=== PATIENT | female | born 1955 | race Caucasian/White ===

== ENCOUNTER 2019-08-15 08:04 | Outpatient (CLI) | payer MEDICARE, SELFPAY ==
[2019-08-15 09:30] LABS: Alanine Aminotransferase 15 U/L (4-35); Albumin Level 4.1 g/dL (3.5-5.1); Alkaline Phosphatase 72 U/L (38-126); Aspartate Amino Transferase 26 U/L (14-36); Bilirubin,Total 0.2 mg/dL (0.2-1.3); Blood Urea Nitrogen 12 mg/dL (7-17); Calcium 9.3 mg/dL (8.4-10.2); Carbon Dioxide 29 mmol/L (22-30); Chloride 105 mmol/L (98-107); Estimated Glomerular Filt Rate 50; Glucose 85 mg/dL (65-105); Potassium 4.4 mmol/L (3.4-5.0); Sodium 137 mmol/L (137-145)
== END 2019-08-15 08:05 | disposition home or self-care (01) ==
PROVIDERS: PCP Internal Medicine; Visit Provider Nurse Practitioner
DX: R00.2 Palpitations (principal)
CPT/HCPCS: 36415; 80053; 84443

== ENCOUNTER 2019-08-16 13:19 | Outpatient (CLI) | payer MEDICARE, SELFPAY ==
--- NOTE | ~2019-08-16 | MR_ITS ---
EXAMINATION: MR shoulder LT wo con DATE: 08/16/2019 15:47 INDICATION: Left shoulder pain post injury one year prior with exacerbating injury one month prior. TECHNIQUE: Magnetic resonance imaging (MRI) of the left shoulder was performed without intravenous co ntrast. Sequences included axial PD-weighted FS FSE, coronal oblique PD-weighted FS FSE, coronal obli que T2-weighted FS FSE, sagittal PD-weighted FS FSE, and sagittal T1-weighted SE. COMPARISON: Left shoulder radiographs dated 06/10/2009 FINDINGS: Evaluation mildly limited by small amount of motion artifact or blurring on multiple sequences. Coracoacromial arch: The acromion undersurface is curved in morphology (type II). The coracoacromial ligament is normal. M ild acromioclavicular osteoarthritis. Rotator cuff: Moderate supraspinatus and infraspinatus tendinopathy with thickening and mild increased signal of th e tendons greatest at the conjoined portion of the tendons. No discrete tear. Mild subscapularis tend inopathy without discrete tear. The teres minor tendon is normal. Normal rotator cuff muscle bulk and signal. Biceps tendon, glenoid labrum and glenohumeral cartilage: There is thickening and increased signal at the junction of the intra and extra articular portions of the long head biceps tendon consistent with tendinopathy and likely focal longitudinal split tearing . Linear increased signal extending laterally into the substance of the superior labrum consistent wi th a superior, anterior to posterior tear of the glenoid labrum (SLAP tear) which extends from the 12 :30 position anteriorly to the 10:30 position posteriorly. There is likely paravertebral cyst extendi ng 12 mm medially from the 11:30 position and measuring approximately 6-7 mm in diameter at this exte nds towards but does not appear to significantly encroach upon the neurovascular structures at the sp inoglenoid notch. There is additional mild degeneration along the inferior glenoid labrum. Glenohumer al cartilage is normal. Fluid: Likely reactive small glenohumeral joint effusion with proportional extension of a small amount fluid along the long head biceps tendon sheath. There is however mild synovitis at the tendon sheath sugge sting mild bicipital tenosynovitis. No loose osteochondral bodies. Small amount of fluid in the subac romial/subdeltoid bursa consistent with mild bursitis. Bones: Normal marrow signal with no edema, fracture or pathologic marrow replacing process. Mild cystic nunn ges along the intertubercular groove. IMPRESSION: 1. SLAP tear at the superior to posterior superior glenoid labrum with small para labral cyst. Additi onal degeneration along the inferior glenoid labrum. 2. Mild subscapularis and moderate supraspinatus and infraspinatus tendinopathy without discrete tear . 3. Moderate tendinopathy and longitudinal split tearing centered at the junction of internal extra ar ticular portion of the long head biceps tendon with mild bicipital tenosynovitis. 4. Mild subacromial/subdeltoid bursitis. Reviewed, dictated and finalized at location A. IMPRESSION: 1. SLAP tear at the superior to posterior superior glenoid labrum with small pa ra labral cyst. Additional degeneration along the inferior glenoid labrum. 2. Mild subscapularis and moderate supraspinatus and infraspinatus tendinopathy without discrete tear. 3. Moderate tendinopathy and longitudinal split tearing centered at the junctio n of internal extra articular portion of the long head biceps tendon with mild bicipital tenosynovitis. 4. Mild subacromial/subdeltoid bursitis.
--- NOTE | ~2019-08-16 | US_ITS ---
EXAMINATION: US carotid duplex BI DATE: 08/16/2019 13:58 INDICATION: Right internal carotid atherosclerosis and stenosis. Palpitations. TECHNIQUE: Grayscale, color Doppler, and pulsed Doppler images of the cervical carotid arteries were obtained. The degree of vessel stenosis is placed in one of the following categories: normal, <50%, 5 0-69%, >=70% but less than near-occlusion, near-occlusion, or total occlusion. Note that percent sten osis relative to normal distal artery lumen diameter is indirectly measured from velocity measurement s as described by Aric, et al. Radiology 2003; 229:340-346. COMPARISON: 04/08/2015 FINDINGS: RIGHT: The right common carotid artery (CCA) peak systolic velocity (PSV) is 89 cm/s. The right internal car otid artery (ICA) PSV is 63 cm/s. The right ICA end-diastolic velocity (EDV) is 25 cm/s. The right IC A/CCA PSV ratio is 0.7. Grayscale and color Doppler images yield an estimate of <50% diameter reducti on from plaque in the ICA. The external carotid artery (ECA) PSV is 70 cm/s. There is antegrade flow in the right vertebral artery. LEFT: The left CCA PSV is 67 cm/s. The left ICA PSV is 53 cm/s. The left ICA EDV is 14 cm/s. The left ICA/C CA PSV ratio is 0.8. Grayscale and color Doppler images yield an estimate of <50% diameter reduction from plaque in the ICA. The ECA PSV is 79 cm/s. There is antegrade flow in the left vertebral artery. IMPRESSION: 1. <50% stenosis in the right internal carotid artery. 2. <50% stenosis in the left internal carotid artery. Reviewed, dictated and finalized at location A.
== END 2019-08-16 13:20 | disposition home or self-care (01) ==
PROVIDERS: PCP Internal Medicine; Visit Provider Nurse Practitioner
DX: R00.2 Palpitations (principal); M75.52 Bursitis of left shoulder; S43.432A Superior glenoid labrum lesion of left shoulder, initial encounter; X58.XXXA Exposure to other specified factors, initial encounter; I65.23 Occlusion and stenosis of bilateral carotid arteries
CPT/HCPCS: 73221; 93880

== ENCOUNTER 2019-08-17 10:12 | Outpatient (CLI) | payer MEDICARE, SELFPAY ==
--- NOTE | 2019-08-20 15:52 | WPDHOLTEREM ---
Holter/Event Monitor Holter/Event Monitor Date of procedure: 08/17/19 Procedure Type: 48 hour holter monitor Indications: Palpitations Conclusion: 1. 48 hour holter monitor on 08/17/19. 2. Underlying rhythm is sinus rhythm. HR range 56-133 bpm; average HR 76 bpm. 3. There are 19 premature supraventricular complexes, 2 supraventricular couplets. No supraventricular tachycardia. 4. There are 2 premature ventricular complexes. No ventricular tachycardia. 5. No sinoatrial or atrioventricular blocks. No significant pauses greater than 2 seconds. 6. Patient reports symptoms of shortness of breath, palpitations, thumping heart, fast heart beak, feeling shaky which demonstrate sinus rhythm, HR range 68-77 bpm.
== END 2019-08-17 10:13 | disposition home or self-care (01) ==
PROVIDERS: PCP Internal Medicine; Visit Provider Nurse Practitioner
DX: R00.2 Palpitations (principal)
CPT/HCPCS: 93225; 93226

== ENCOUNTER 2019-08-23 12:39 | Outpatient (CLI) | payer MEDICARE, SELFPAY ==
--- NOTE | ~2019-08-23 | XR_ITS ---
EXAMINATION: XR lg joint inject/asp w image DATE: 08/23/2019 13:43 INDICATION: Severe tendinopathy with left shoulder pain. TECHNIQUE: A time-out was performed to verify the patient's name, date of , and procedure to b e performed. The procedure including the risks, benefits, and alternatives was discussed with the pat ient. Risks discussed included bleeding and infection. The patient understood the risks and agreed to proceed. The skin overlying the rotator cuff interval of the left glenohumeral joint was prepped an d draped in usual sterile fashion. Anesthetic was administered with 1% lidocaine subcutaneously. A 22 G needle was advanced under fluoroscopic guidance into the joint. Injection of 0.4 mL of Omnipaqu e 240 confirmed intra-articular position of the needle. Subsequently, injectate consisting of 4 mL o f a 3:1 mixture of 1% lidocaine: 80 mg/mL Depo-Medrol for a total dose of 80 mg Depo-Medrol was insti lled. Washout of contrast was seen confirming intra-articular administration. The needle was removed and the entry site was cleaned and dressed. There were no immediate complications. Fluoroscopy expos ure time was 3.1 minutes. The total number of images was 2. FINDINGS: Real-time fluoroscopy demonstrates the needle in the left glenohumeral joint. Patient's [place] n prior to procedure:8/10. Patient's pain following the procedure: 5/10. IMPRESSION: 1. Left glenohumeral joint injection of local anesthetic and steroid with decrease in the patient's p resenting pain. Reviewed, dictated and finalized at location A. IMPRESSION: 1. Left glenohumeral joint injection of local anesthetic and steroid with decre ase in the patient's presenting pain.
== END 2019-08-23 12:40 | disposition home or self-care (01) ==
PROVIDERS: PCP Internal Medicine; Visit Provider Orthopaedic Surgery
DX: M25.512 Pain in left shoulder (principal)
CPT/HCPCS: 20610; 77002; J1040; Q9966

== ENCOUNTER 2019-12-03 13:59 | Outpatient (CLI) | payer MEDICARE, SELFPAY ==
--- NOTE | ~2019-12-03 | CT_ITS ---
EXAMINATION: CT chest w con DATE: 12/03/2019 14:29 INDICATION: Left breast cancer TECHNIQUE: Computed tomography (CT) of the chest was performed with 75 cc Omnipaque 350 intravenous c ontrast. The dose-length product was 123.55 mGy-cm. Automated exposure control and iterative reconstr uction technique were employed. COMPARISON: CT dated 04/07/2018 FINDINGS: There is a 2 mm right upper lobe nodule, image 18, stable. Mild emphysema. Calcified right lower lobe nodule, consistent with chronic granulomatous disease. 2 mm right upper lobe nodule, image 12, stable. There is lingular atelectasis/scarring. No new pulmonary nodules or masses. Moderate tho racic spondylosis. No evidence for aortic aneurysm or dissection. Heart size normal. No significant p leural or pericardial effusion. There are cholecystectomy clips. Fatty infiltration of the liver. The re is prominence of the bile duct, likely due to prior cholecystectomy. There are surgical changes in the left breast. Mild wedge shaped appearance to the lower thoracic spine, likely chronic. Focal vas cular lesion right hepatic lobe, image 94, measuring 8 mm. There is a vascular lesion in the left hep atic lobe, image 85, measuring 12 mm. IMPRESSION: 1. Vascular lesions of the liver involving both lobes. Differential diagnosis includes benign hemangi omas, transient hepatic attenuation difference, adenomas and metastatic disease. Consider correlation with MRI. 2: Mild emphysema. 3: Stable small pulmonary nodules, likely benign. Reviewed, dictated and finalized at location A. IMPRESSION: 1. Vascular lesions of the liver involving both lobes. Differential diagnosis i ncludes benign hemangiomas, transient hepatic attenuation difference, adenomas and metastatic disease. Consider correlation with MRI. 2: Mild emphysema. 3: Stable small pulmonary nodules, likely benign.
[2019-12-03 14:24] LABS: Estimated Glomerular Filt Rate 50
== END 2019-12-03 14:00 | disposition home or self-care (01) ==
PROVIDERS: PCP Internal Medicine; Visit Provider Internal Medicine Medical Oncology
DX: C50.212 Malignant neoplasm of upper-inner quadrant of left female breast (principal); Z17.0 Estrogen receptor positive status [ER+]; J43.9 Emphysema, unspecified; R91.8 Other nonspecific abnormal finding of lung field
CPT/HCPCS: 36415; 71260; Q9967

== ENCOUNTER 2020-12-27 13:43 | Emergency (ER) | payer MEDICARE, SELFPAY ==
[2020-12-27 14:04] VITALS: BP 115/79; PULSE 96; RESP 16; TEMP 36.6; O2SAT 100
--- NOTE | 2020-12-27 14:40 | ED.URI ---
HPI - URI/Sore Throat General Chief Complaint: Upper Respiratory Infection Stated Complaint: SINUS CONGESTION/SWOLLEN GLANDS Source: patient and RN notes reviewed Limitations: no limitations History of Present Illness HPI Narrative: The vaccinated patient, a smoker/occasional drinker with COPD, presents with sinus congestion. Patient states she has a least a week long history of frontal sinus headache, scratchy throat, anterior lymphadenopathy and ear fullness. Symptoms are mild unrelieved with [id number] Zyrtec. No S OB, loss of taste/smell, CP, sputum changes, wheezing, vomiting/diarrhea Related Data Home Medications Medication Instructions Recorded Confirmed cholecalciferol (vitamin D3) 50 2,000 unit PO DAILY 03/26/19 04/10/20 mcg (2,000 unit) capsule fluticasone propionate 50 See Rx Instructions NASAL DAILY PRN 03/26/19 04/10/20 mcg/actuation nasal spray,suspension olopatadine 0.2 % eye drops 1 drop EACH EYE BID ml 03/26/19 04/10/20 sennosides 8.6 mg-docusate sodium 1 tablet PO DAILY PRN tablet 03/26/19 04/10/20 50 mg tablet Allergies Allergy/AdvReac Type Severity Reaction Status Date / Time povidone-iodine AdvReac Severe Swelling Verified 04/10/20 10:20 [From Betadine] soap [From Betadine] AdvReac Severe Swelling Verified 04/10/20 10:20 Review of Systems Review of Systems: General/Constitutional: No weight loss,fever Eyes: N0: Redness,discharge Ears/Nose/Throat: No: Epistaxis,ear discharge Respiratory: Denies: Hemoptysis Gastrointestinal: No Vomiting, Bleeding-rectal Skin: No Lumps, eruption Neurologic: No Focal Weakness,Sz Hematologic: Denies: Petechiae/Purpura Psychiatric: No: Suicida ideationl All Other Systems: Reviewed and Negative [facility] Past Medical History Medical History Chronic headache Dysphagia Left upper arm pain Family History Family History Mother Hypertension Carcinoma of colon Father Patient's father is Social History Social History Smoking status: Current every day smoker Smoking end date: 05/30/87 Alcohol intake: current Comments At time of signature, agree with nursing past medical, surgical, social and family history. There is no relevant family history pertinent to the presenting complaint Exam Narrative: General Appearance: Well appearing, Well nourished EYE: PERRLA, Conjunctiva clear Ears: Auditory canal normal, TM normal Nose: Rhinorrhea, Mucousal erythema Mouth/Throat: MM moist, Uvula midline, Pharyngeal erythema Neck: Supple, No adenopathy Respiratory: No respiratory distress, BS equal decreased at bases, increased AP diameter, CTA, Cardiovascular: RRR, No JVD Musculoskeletal: Non tender, Normal strength Skin: Warm, Dry Neurological: A&O x3, CN II-XII intact Psychiatric: Normal mood, Normal affect Course Vital Signs Vital signs: Vital Signs Temperature 98 F 12/27/20 14:04 Pulse Rate 96 12/27/20 14:04 Respiratory Rate 16 12/27/20 14:04 Blood Pressure 115/79 12/27/20 14:04 Pulse Oximetry 100 12/27/20 14:04 Temperature 98 F 12/27/20 14:04 Pulse Rate 96 12/27/20 14:04 Respiratory Rate 16 12/27/20 14:04 Blood Pressure 115/79 12/27/20 14:04 Pulse Oximetry 100 12/27/20 14:04 Discharge Plan Discharge Clinical Impression: Sinus headache, Lymphadenopathy Patient Disposition: Home, Self-Care Condition: Stable Instructions: Antibiotic Form, Sinusitis (ED) Additional Instructions: You may take your home pain meds; You may take OTC preparations also like Mucinex, Flonase, etc. Prescriptions: New azelastine 137 mcg (0.1 %) aerosol,spray 137 mcg NASAL Q12H Qty: 30 RF: 0 cefuroxime axetil 500 mg tablet 500 mg PO Q12H Qty: 14 RF: 0 No Action metronidazole 0.7
[2020-12-29 13:58] LABS: SARS-CoV-2 RNA PCR Negative
== END 2020-12-27 14:50 | disposition home or self-care (01) ==
PROVIDERS: Emergency Provider Emergency Medicine; PCP Internal Medicine
DX: R51.9 Headache, unspecified (principal); R59.1 Generalized enlarged lymph nodes; Z20.822 Contact with and (suspected) exposure to COVID-19; Z87.891 Personal history of nicotine dependence; I10 Essential (primary) hypertension
CPT/HCPCS: 99213; C9803; G0463; U0003; U0005

== ENCOUNTER 2021-01-01 09:24 | Outpatient (CLI) | payer MEDICARE, SELFPAY ==
[2021-01-01 10:01] LABS: Alanine Aminotransferase 11 U/L (4-35); Albumin Level 3.8 g/dL (3.5-5.1); Alkaline Phosphatase 82 U/L (38-126); Anion Gap 3 mmol/L (8-16); Aspartate Amino Transferase 26 U/L (14-36); Bilirubin,Total 0.3 mg/dL (0.2-1.3); Blood Urea Nitrogen 15 mg/dL (7-17); Calcium 9.4 mg/dL (8.4-10.2); Carbon Dioxide 28 mmol/L (22-30); Chloride 107 mmol/L (98-107); Cholesterol 182 mg/dL (0-200); Estimated Glomerular Filt Rate 56; Glucose 87 mg/dL (65-110); HDL Direct 89 mg/dL; Potassium 4.8 mmol/L (3.4-5.0); Sodium 138 mmol/L (137-145); Triglycerides 61 mg/dL (<150)
[2021-01-01 10:11] LABS: LDL Cholesterol Direct 72 mg/dL
[2021-01-01 10:35] LABS: Vitamin D 25 Hydroxy 54.1 ng/mL
== END 2021-01-01 09:25 | disposition home or self-care (01) ==
LOC: ANHLAB 09:26
PROVIDERS: PCP Internal Medicine; Visit Provider Internal Medicine
DX: E78.5 Hyperlipidemia, unspecified (principal); I25.10 Atherosclerotic heart disease of native coronary artery without angina pectoris; E55.9 Vitamin D deficiency, unspecified; I10 Essential (primary) hypertension
CPT/HCPCS: 36415; 80053; 80061; 82306

== ENCOUNTER → 2021-03-10 03:00 | Outpatient (CLI) | payer MEDICARE, SELFPAY ==
[2021-03-10 16:22] LABS: SARS-CoV-2 RNA PCR Negative
== END ==
PROVIDERS: PCP Internal Medicine; Visit Provider Internal Medicine
DX: R68.89 Other general symptoms and signs (principal); Z20.822 Contact with and (suspected) exposure to COVID-19
CPT/HCPCS: C9803; U0003; U0005

== ENCOUNTER → 2021-05-07 01:38 | Outpatient (CLI) | payer MEDICARE, SELFPAY ==
[2021-05-07 13:50] LABS: Influenza Control Positive
[2021-05-07 19:33] LABS: SARS-CoV-2 RNA PCR Negative
== END ==
PROVIDERS: PCP Internal Medicine; Visit Provider Internal Medicine
DX: R68.89 Other general symptoms and signs (principal); Z20.822 Contact with and (suspected) exposure to COVID-19
CPT/HCPCS: 87804; C9803; U0003; U0005

== ENCOUNTER 2021-06-26 11:48 | Emergency (ER) | payer MEDICARE, SELFPAY ==
[2021-06-26 11:57] VITALS: BP 144/78; PULSE 93; RESP 16; TEMP 36.5; O2SAT 98
--- NOTE | 2021-06-26 11:58 | ED.EXTPRO ---
HPI - Extremity Problem General Chief complaint: Extremity Problem,Nontraumatic Stated complaint: Left pinky toe pain Source: patient Mode of arrival: ambulatory Limitations: no limitations History of Present Illness HPI Narrative: 66-year-old female presented for complaint of left toe pain for about 5 days after injury. She endorses striking the corner of a desk between the fourth and fifth toes, after which she pulled a large piece of skin from the interdigital space. Endorses since then she noticed redness and swelling to the toe and surrounding skin. Denies significant pain, numbness, tingling. She is able to ambulate with a steady gait. Has been applying Neosporin to the site. Related Data Home Medications Medication Instructions Recorded Confirmed cholecalciferol (vitamin D3) 50 2,000 unit PO DAILY 03/26/19 06/26/21 mcg (2,000 unit) capsule sennosides 8.6 mg-docusate sodium 1 tablet PO DAILY PRN tablet 03/26/19 06/26/21 50 mg tablet Allergies Allergy/AdvReac Type Severity Reaction Status Date / Time povidone-iodine AdvReac Severe Swelling Verified 06/26/21 11:52 [From Betadine] soap [From Betadine] AdvReac Severe Swelling Verified 06/26/21 11:52 Review of Systems Review of Systems: CONSTITUTIONAL: Denies body aches, fever, chills, or sweats. EYES: Denies visual changes, redness, or discharge. ENT: Denies rhinorrhea, congestion, sore throat, or otalgia. CARDIOVASCULAR: Denies chest pain, palpitations, or edema. RESPIRATORY: Denies cough or dyspnea. GASTROINTESTINAL: Endorses abdominal pain, nausea, vomiting, diarrhea. Denies hematochezia, melena, hematemesis GENITOURINARY: Denies dysuria or hematuria. SKIN: Endorses left 5th toe redness, swelling and open area between 4th and 5th toes Denies rash, itching MUSCULOSKELETAL: Denies back pain, joint pain, or myalgia. NEUROLOGIC: Denies headache, numbness, tingling, or weakness. PSYCH: Denies depression or anxiety. All systems reviewed & are unremarkable except as noted in HPI and below PMFSH Past Medical History Medical History (Updated 06/26/21 @ 12:10 by Smiley Conway APRN) Allergies Anxiety (09/26/18) Chronic headache Chronic left shoulder pain Coronary arteriosclerosis in [place] artery Discoloration of skin Dysphagia Hyperlipidemia Left hip pain Left knee pain Left upper arm pain Multiple lesions of face Pure hypercholesterolemia Scalp lesion Trochanteric bursitis, left hip Family History Family History Mother Hypertension Carcinoma of colon Father Patient's father is Social History Social History Smoking packs per day: 0.5 Smoking cigarettes per day: 10.0 Years smoked: 30 Smoking pack-years: 15.00 Smoking status: Current every day smoker Tobacco type: cigarettes Second hand tobacco smoke exposure: Yes Alcohol intake: current Alcohol use details: social Substance use: never Substance use type: does not use Comments At time of signature, I have reviewed and agree with nursing past medical, surgical, social and family history unless otherwise noted. Please see nursing chart for further information. There is no relevant family history pertinent to the presenting complaint Exam Narrative: GENERAL: Well-appearing, well-nourished, and in no acute distress. HEAD: Normocephalic, atraumatic. EYES: EOMI. No redness or drainage. Conjunctivae normal. ENT: Mucous membranes pink and moist. NECK: Normal AROM. CHEST: No respiratory distress. Clear to auscultation. HEART: Regular rate and rhythm. No murmur appreciated. Normal peripheral pulses. ABDOMEN: abd soft, nondistended, normal active bowel sounds. MUSCULOSKELETAL: No bony tenderness. EXTREMITIES: Normal range of motion. No edema. SKIN: Left foot 5th digit mild erythema and swelling approx 1 inch from MTP joint, o
== END 2021-06-26 12:18 | disposition home or self-care (01) ==
PROVIDERS: Emergency Provider Nurse Practitioner Family; PCP Internal Medicine
DX: L08.9 Local infection of the skin and subcutaneous tissue, unspecified (principal); S91.302A Unspecified open wound, left foot, initial encounter; W22.8XXA Striking against or struck by other objects, initial encounter; I25.10 Atherosclerotic heart disease of native coronary artery without angina pectoris; E78.5 Hyperlipidemia, unspecified; E78.00 Pure hypercholesterolemia, unspecified; F17.200 Nicotine dependence, unspecified, uncomplicated; F41.9 Anxiety disorder, unspecified
CPT/HCPCS: 99213; G0463

== ENCOUNTER 2021-07-14 08:08 | Outpatient (CLI) | payer MEDICARE, SELFPAY ==
[2021-07-14 09:27] LABS: Cholesterol 199 mg/dL (0-200); HDL Direct 79 mg/dL; Triglycerides 77 mg/dL (<150)
[2021-07-14 09:28] LABS: Alanine Aminotransferase 14 U/L (4-35); Albumin Level 4.4 g/dL (3.5-5.1); Alkaline Phosphatase 86 U/L (38-126); Anion Gap 4 mmol/L (8-16); Aspartate Amino Transferase 27 U/L (14-36); Bilirubin,Total 0.3 mg/dL (0.2-1.3); Blood Urea Nitrogen 13 mg/dL (7-17); Calcium 9.3 mg/dL (8.4-10.2); Carbon Dioxide 31 mmol/L (22-30); Chloride 106 mmol/L (98-107); Estimated Glomerular Filt Rate 55; Glucose 96 mg/dL (65-110); Potassium 5.1 mmol/L (3.4-5.0); Sodium 141 mmol/L (137-145)
[2021-07-14 09:38] LABS: LDL Cholesterol Direct 94 mg/dL
[2021-07-14 09:56] LABS: Vitamin D 25 Hydroxy 38.8 ng/mL
[2021-07-14 09:58] LABS: Thyroid Stimulating Hormone 0.809 uIU/mL (0.465-4.680)
== END 2021-07-14 08:09 | disposition home or self-care (01) ==
PROVIDERS: PCP Internal Medicine; Referring Provider Internal Medicine; Visit Provider Nurse Practitioner
DX: E55.9 Vitamin D deficiency, unspecified (principal); N18.30 Chronic kidney disease, stage 3 unspecified; F32.9 Major depressive disorder, single episode, unspecified; E78.5 Hyperlipidemia, unspecified; Z13.220 Encounter for screening for lipoid disorders
CPT/HCPCS: 36415; 80053; 80061; 82306; 84443

== ENCOUNTER 2021-08-22 09:04 | Outpatient (CLI) | payer MEDICARE, SELFPAY ==
--- NOTE | ~2021-08-22 | CT_ITS ---
EXAMINATION: CT lung screening EXAM DATE: 08/22/2021 09:47 INDICATION: Z72.0 - Tobacco use. TECHNIQUE: Spiral low dose CT of the chest without contrast. Axial, coronal and sagittal images were reviewed. The dose-length product (DLP) for this examination was 60.57 mGy-cm. The exposure was ta ilored according to patient size (auto mA exposure control), and iterative reconstruction (ASIR) was used as additional dose reduction technique. Comparison is made to prior examination from 12/03/2019. FINDINGS: There is right lower lobe calcified granuloma. There is mild to moderate emphysema and hyp erinflation. Tracheobronchial tree is patent. There is no mediastinal, hilar or axillary lymphadeno kolby. There are no pleural or pericardial effusions. There is no pneumothorax. Heart normal in size. There is mild coronary arterial calcification, arterial sclerosis. There are cholecystectom y clips. Upper abdomen is unremarkable. There is thoracic spondylosis without osteoblastic or ost eolytic lesions identified. IMPRESSION: Lung-RADS category 1, negative (<1%chance of malignancy); recommend continued LDCT screen ing in 1 year. Reviewed, dictated and finalized at location B. IMPRESSION: Lung-RADS category 1, negative (<1%chance of malignancy); recommend continued LDCT screening in 1 year.
== END 2021-08-22 09:05 | disposition home or self-care (01) ==
LOC: ANHIMG 09:05
PROVIDERS: PCP Internal Medicine; Visit Provider Internal Medicine
DX: Z12.2 Encounter for screening for malignant neoplasm of respiratory organs (principal); F17.210 Nicotine dependence, cigarettes, uncomplicated
CPT/HCPCS: 71271

== ENCOUNTER 2021-08-26 06:57 | Outpatient (CLI) | payer MEDICARE, SELFPAY ==
--- NOTE | ~2021-08-26 | CT_ITS ---
EXAMINATION: CT sinus wo con DATE: 08/26/2021 07:16 INDICATION: Chronic sinusitis. Dysphagia. TECHNIQUE: Computed tomography (CT) of the paranasal sinuses was performed without contrast. Iterativ e reconstruction technique was employed. Exam dose: 277.13 mGy-cm total exam DLP. COMPARISON: None FINDINGS: There is rightward bowing of nasal septum. The nasal turbinates are unremarkable. The paranasal sinuses, ostiomeatal units and mastoid air cells are normally developed and aerated. IMPRESSION: Rightward bowing of nasal septum Patent paranasal sinuses, ostiomeatal units and mastoid air cells Reviewed, dictated and finalized at Location A. Reviewed, dictated and finalized at location A.
--- NOTE | ~2021-08-26 | XR_ITS ---
EXAMINATION: XR barium swallow modified DATE: 08/26/2021 08:24 INDICATION: Dysphagia TECHNIQUE: Modified barium esophagram was performed by myself to administered fluoroscopy, in conjun ction with speech pathologist who administered barium in varying consistencies as per speech patholog ist documentation. This was recorded on tape. A single fluoroscopic spot image was recorded. The DAP for this procedure was 1.117 Gycm2. Fluoroscopy exposure time was 1.6 minutes. FINDINGS: Oral stage: Adequate function. Pharyngeal phase: Adequate function. Laryngeal penetration: Present within liquids. Aspiration: None. Laryngeal sensitivity: Present. IMPRESSION: Laryngeal penetration with thin liquids. Please refer to speech pathologist findings and specific feeding recommendations. Reviewed, dictated and finalized at location A. IMPRESSION: Laryngeal penetration with thin liquids. Please refer to speech pat hologist findings and specific feeding recommendations.
--- NOTE | 2021-08-26 09:55 | STOPEVAL ---
Thank you for referring Ghada Espino to [facility].? Outpatient Speech Therapy is recommended at this time. If your are in agreement with continuing Speech Therapy, please send a new Speech Therapy order along with this signed form. I agree with and certify that the following plan of care is medically necessary. Referring Physician Date Attending Provider: Osmar Maharaj DO Therapy Assessment Status Assessment Status Assessment Status Evaluation Outpatient Past Medical History Past Medical History Source of Past Medical History Patient Neurological History Hx Transient Ischemic Attacks (TIA) Yes Cardiovascular History Hx Hypercholesterolemia Yes Hx Hypertension Yes Respiratory History Hx Asthma Yes Hx Bronchitis Yes Hx Chronic Obstructive Pulmonary Disease Yes (COPD) Hx Pulmonary Embolism Yes: 2012 Gastrointestinal History Hx Cholecystectomy Yes Hx Polyps Yes: rectal Genitourinary History Hx Renal Disease Yes: stage 3 Hx Other Genitourinary Disorders Yes: tvt bladder Musculoskeletal History Hx Arthritis Yes: hands back neck Hx Back Pain Yes Hx Orthopedic Surgery Yes: bone tumor Hx Spinal Surgery Yes: neck discectomy Hx Other Musculoskeletal Disorders Yes: hip pain Endocrine History Hx Hypothyroidism Yes HEENT History Hx Cataracts Yes Hx Tonsillectomy Yes: 1971 Hx Dental Problems Yes: dentures Reproductive History Hx Post Menopausal Yes Psychosocial History Hx Anxiety Yes Hx Depression Yes Evaluation Information Problem Diagnosis Dysphagia Onset 2006 Cause s/p cervical surgery due to fractures Subjective Information The patient reports that in Query Text:As Reported By Patient/ 2006, she tripped and fell Family resulting in cervical neck fractures requiring surgery and plates placed. She reports that since that time, she feels she has had difficulty with swallowing, including food and pills hanging up in the base of her throat and getting tickled/choked on thin liquids. She stated that she feels it has gradually become worse but also stated that she feels she has learned compensatory strategies to
== END 2021-08-26 06:58 | disposition home or self-care (01) ==
LOC: ANHIMG 07:01
PROVIDERS: PCP Internal Medicine; Visit Provider Internal Medicine
DX: J32.9 Chronic sinusitis, unspecified (principal); R13.13 Dysphagia, pharyngeal phase
CPT/HCPCS: 70486; 92611

== ENCOUNTER 2021-09-07 08:05 | Outpatient (CLI) | payer MEDICARE, SELFPAY ==
--- NOTE | 2021-09-09 15:04 | WPDHOLTEREM ---
Holter/Event Monitor Holter/Event Monitor Date of procedure: 09/07/21 Holter/Event Procedure: 48 Hr Holter Monitor Indications: Palpitations Conclusion: 1. 48 hour holter monitor on 09/07/21. 2. Underlying rhythm is sinus rhythm. HR range 55-115 bpm; average HR 79 bpm. 3. There are 86 premature supraventricular complexes, 12 supraventricular couplets and 1 supraventricular triplet. No supraventricular tachycardia. 4. No premature ventricular complexes. No ventricular tachycardia. 5. No sinoatrial or atrioventricular blocks. No significant pauses greater than 2 seconds. 6. Patient reports felt like heart jumped which demonstrates sinus rhythm at 88 bpm.
== END 2021-09-07 08:06 | disposition home or self-care (01) ==
LOC: ANHCARD 08:06
PROVIDERS: PCP Internal Medicine; Visit Provider Internal Medicine
DX: R00.2 Palpitations (principal)
CPT/HCPCS: 93225; 93226

== ENCOUNTER 2021-10-29 12:26 | Emergency (ER) | payer MEDICARE, SELFPAY ==
--- NOTE | ~2021-10-29 | XR_ITS ---
EXAMINATION: XR sinus min 3V DATE: 10/29/2021 13:00 INDICATION: Left maxillary facial pain. TECHNIQUE: 3 views of the paranasal sinuses were obtained. COMPARISON: CT sinuses 08/26/2021 FINDINGS: The nasal septum is at midline. There is fluid in left maxillary sinus. There are changes o f anterior fusion procedure in cervical spine. IMPRESSION: 1. Fluid in left maxillary sinus, consistent with acute sinusitis. Reviewed, dictated and finalized at location A.
--- NOTE | 2021-10-29 12:38 | ED.DENTAL ---
HPI - Dental/Oral General Chief complaint: Dental/Oral Stated complaint: pain and swelling left side of face Time Seen by Provider: 10/29/21 12:42 Source: patient Mode of arrival: ambulatory History of Present Illness HPI Narrative: 66 y/o female presented for c/o left facial pain for 2 days. Reports mild swelling and tenderness to touch. Denies injury. Pain is constant, rates 6/10, worse when touching the face. Wears top dentures and denies any gum pain or swelling. Takes scheduled pain medication but states it does not help the face pain. Reports she is scheduled for MRI brain due to c/o headaches, for which she had sinus imaging completed a while ago and was told it is normal. States she tested positive for Covid 10/11/21 MD Complaint: tooth pain Related Data Home Medications Medication Instructions Recorded Confirmed cholecalciferol (vitamin D3) 50 2,000 unit PO DAILY 03/26/19 10/29/21 mcg (2,000 unit) capsule sennosides 8.6 mg-docusate sodium 1 tablet PO DAILY PRN Constipation 03/26/19 10/29/21 50 mg tablet (Senna-S) Allergies Allergy/AdvReac Type Severity Reaction Status Date / Time povidone-iodine AdvReac Severe Swelling Verified 10/29/21 12:32 [From Betadine] soap [From Betadine] AdvReac Severe Swelling Verified 10/29/21 12:32 Review of Systems Review of Systems: CONSTITUTIONAL: Denies body aches, fever, chills ENT: Denies rhinorrhea, congestion, sore throat, or otalgia. CARDIOVASCULAR: Denies chest pain, palpitations RESPIRATORY: Denies cough or dyspnea. SKIN: Denies rash, itching, or wounds. MUSCULOSKELETAL: Denies myalgia. [facility] Past Medical History Medical History Allergies Anxiety (09/26/18) Chronic headache Chronic left shoulder pain Corns and callosities Coronary arteriosclerosis in [place] artery Discoloration of skin Dysphagia Hyperlipidemia Left hip pain Left knee pain Left upper arm pain Multiple lesions of face Pure hypercholesterolemia Scalp lesion Trochanteric bursitis, left hip Family History Family History Mother Hypertension Carcinoma of colon Father Patient's father is Social History Social History Smoking packs per day: 0.5 Smoking cigarettes per day: 10.0 Years smoked: 30 Smoking pack-years: 15.00 Smoking status: Current some day smoker Tobacco type: cigarettes Second hand tobacco smoke exposure: Yes Alcohol intake: current Alcohol use details: social Substance use: never Substance use type: does not use Comments At time of signature, I have reviewed and agree with nursing past medical, surgical, social and family history unless otherwise noted. Please see nursing chart for further information. There is no relevant family history pertinent to the presenting complaint Exam Narrative: GENERAL: Appears in pain HEAD: Normocephalic, atraumatic. EYES: EOMI. No redness or drainage. Conjunctivae normal. ENT: Left maxillary mild swelling and erythema, tender with palpation over maxillary sinus. Mucous membranes pink and moist. TMs normal bilaterally. Throat normal. Uvula midline. Gums normal, edentulous. NECK: Normal AROM. Supple. No lymphadenopathy. CHEST: No respiratory distress. Clear to auscultation. HEART: Regular rate and rhythm. No murmur appreciated. ABDOMEN: Soft, nontender, nondistended, normal active bowel sounds. SKIN: Warm, dry, no rash. Normal skin turgor. NEURO: No focal deficits. Alert and oriented x3. Gait steady. Course Course Emergency Course: Patient is aware of diagnosis, understands and agrees to treatment plan. Anticipatory guidance given. Patient agrees to follow-up as directed and is aware of reasons to seek care at the emergency department. Portions of this record may have been created with voice recognition software
[2021-10-29 13:06] VITALS: BP 105/65; PULSE 100; RESP 16; TEMP 35.8; O2SAT 98
== END 2021-10-29 13:20 | disposition home or self-care (01) ==
PROVIDERS: Emergency Provider Nurse Practitioner Family; PCP Internal Medicine
DX: J01.00 Acute maxillary sinusitis, unspecified (principal); F17.210 Nicotine dependence, cigarettes, uncomplicated; I25.10 Atherosclerotic heart disease of native coronary artery without angina pectoris; E78.5 Hyperlipidemia, unspecified; E78.00 Pure hypercholesterolemia, unspecified
CPT/HCPCS: 70220; 99213; G0463

== ENCOUNTER 2021-11-06 10:20 | Outpatient (CLI) | payer MEDICARE, SELFPAY ==
--- NOTE | ~2021-11-06 | XR_ITS ---
XR thoracic spine 3V DATE: 11/06/2021 10:42 INDICATION: Generalized back pain. No injury. TECHNIQUE: AP, lateral, swimmer views COMPARISON: None FINDINGS: Status post anterior cervical spine surgical fusion at C4-C7. Osteopenia. Degenerative spurring of the thoracic spine, particular at T7-10. No fracture or dislocation. No bone destruction. The thoracic pedicles are intact. No paraspinal soft tissue thickening. Surgical clips, right upper quadrant, consistent with cholecystectomy. Surgical clips overlie the left breast. IMPRESSION: Status post anterior cervical spine surgical fusion at C4-C7 Degenerative spurring of the thoracic spine Osteopenia Reviewed, dictated and finalized at location A.
--- NOTE | ~2021-11-06 | MR_ITS ---
EXAMINATION: MR brain/brain stem wo con DATE: 11/06/2021 16:12 INDICATION: Headache, unspecified. TECHNIQUE: Magnetic resonance imaging (MRI) of the brain and brainstem was performed without intraven ous contrast. COMPARISON: Brain MRI 03/18/2015 FINDINGS: There are scattered areas of nonspecific increased T2-weighted signal intensity in the cere bral white matter, right basal ganglia, and litzy. There is no intracranial hemorrhage, acute infarcti on, or abnormal intracranial mass lesion. The ventricles are normal in size. The mastoid air cells ar e normal. There is mild mucosal thickening in the ethmoid sinuses. The orbits are normal. IMPRESSION: 1. Worsened moderate nonspecific cerebral white matter disease and disease of the right basal ganglia and litzy, which likely represents chronic small vessel ischemic disease. Reviewed, dictated and finalized at location A. IMPRESSION: 1. Worsened moderate nonspecific cerebral white matter disease and disease of t he right basal ganglia and litzy, which likely represents chronic small vessel i schemic disease.
--- NOTE | ~2021-11-06 | XR_ITS ---
XR lumbar spine 2-3V DATE: 11/06/2021 10:42 INDICATION: Generalized back pain. No injury. TECHNIQUE: AP, lateral, coned lateral lumbosacral views COMPARISON: 02/23/2017 lumbar spine FINDINGS: Mild dextro scoliosis of the thoracolumbar spine. Osteopenia. There is mild loss of height and anterior wedging of T12. There is degenerative change at the apophyseal joints of the lower lumbosacral area with associated g rade 1 anterolisthesis at L4-5. There is mild degenerative disc disease at L1-2 through L4-5. L5-S1 interspace is well preserved. No fracture or bone destruction is evident. The included lower thoracic and lumbar pedicles are intac t. The sacroiliac joints are intact. Status post cholecystectomy. IMPRESSION: Mild thoracolumbar dextro scoliosis Osteopenia Mild degenerative disc disease at L1-2 through L4-5 Degenerative change at the lower lumbar and lumbosacral apophyseal joints with associated grade 1 ant erolisthesis at L4-5 Chronic mild loss of height and anterior wedging of T12 Reviewed, dictated and finalized at location A. IMPRESSION: Mild thoracolumbar dextro scoliosis Osteopenia Mild degenerative disc disease at L1-2 through L4-5 Degenerative change at the lower lumbar and lumbosacral apophyseal joints with associated grade 1 anterolisthesis at L4-5 Chronic mild loss of height and anterior wedging of T12
== END 2021-11-06 10:21 | disposition home or self-care (01) ==
PROVIDERS: PCP Internal Medicine; Visit Provider Internal Medicine
DX: M54.9 Dorsalgia, unspecified (principal); R93.0 Abnormal findings on diagnostic imaging of skull and head, not elsewhere classified; M85.88 Other specified disorders of bone density and structure, other site; Z98.1 Arthrodesis status
CPT/HCPCS: 70551; 72072; 72100

== ENCOUNTER 2022-01-15 11:50 | Outpatient (CLI) | payer MEDICARE, SELFPAY ==
[2022-01-15 12:27] LABS: Basophils Absolute Auto 0.1 K/mm3 (0.0-0.1); Eosinophils Absolute Auto 0.1 K/mm3 (0-0.3); Hematocrit 40.1 % (37.0-47.0); Hemoglobin 13.1 g/dL (12.0-15.0); Immature Granulocyte Absolute 0.01 K/mm3 (0.00-0.031); Immature Granulocyte Percent A 0.2 % (0-0.5); Lymphocytes Absolute Auto 1.64 K/mm3 (0.9-3.2); Lymphocytes Percent Auto 26.8 % (18.3-44.2); Mean Corpuscular HGB Conc 32.7 g/dl (32-36); Mean Corpuscular Hemoglobin 30.3 pg (26-34); Mean Corpuscular Volume 92.6 fl (80-100); Mean Platelet Volume 10.1 fl (7.4-10.4); Monocytes Absolute Auto 0.5 K/mm3 (0.1-0.6); Monocytes Percent Auto 8.2 % (2.6-8.5); Neutrophils Absolute Auto 3.8 K/mm3 (1.3-6.7); Neutrophils Percent Auto 61.8 % (45.5-73.1); Platelet Count Result 335 k/mm3 (150-375); Red Blood Count 4.33 M/mm3 (4.2-5.4); Red Cell Distribution Width 12.8 % (11.5-14.5); White Blood Count 6.1 K/mm3 (4.5-10.0)
== END 2022-01-15 11:51 | disposition home or self-care (01) ==
PROVIDERS: PCP Internal Medicine; Visit Provider Internal Medicine
DX: R53.83 Other fatigue (principal)
CPT/HCPCS: 36415; 85025

== ENCOUNTER 2022-02-17 09:09 | Outpatient (CLI) | payer MEDICARE, SELFPAY ==
[2022-02-17 10:11] LABS: Anion Gap 11 mmol/L (8-16); Blood Urea Nitrogen 9 mg/dL (7-17); Calcium 9.4 mg/dL (8.4-10.2); Carbon Dioxide 29 mmol/L (22-30); Chloride 102 mmol/L (98-107); Cholesterol 229 mg/dL (0-200); Estimated Glomerular Filt Rate 50; Glucose 98 mg/dL (65-110); HDL Direct 75 mg/dL; Potassium 3.8 mmol/L (3.4-5.0); Sodium 142 mmol/L (137-145); Triglycerides 82 mg/dL (<150)
[2022-02-17 10:21] LABS: LDL Cholesterol Direct 116 mg/dL
[2022-02-17 10:35] LABS: Vitamin D 25 Hydroxy 44.3 ng/mL
== END 2022-02-17 09:10 | disposition home or self-care (01) ==
LOC: ANHLAB 09:11
PROVIDERS: PCP Internal Medicine; Visit Provider Internal Medicine
DX: E55.9 Vitamin D deficiency, unspecified (principal); E78.00 Pure hypercholesterolemia, unspecified; I10 Essential (primary) hypertension
CPT/HCPCS: 36415; 80048; 80061; 82306

== ENCOUNTER 2022-04-07 15:07 | Outpatient (CLI) | payer MEDICARE, SELFPAY ==
--- NOTE | ~2022-04-07 | CT_ITS ---
EXAMINATION: CT lung screening DATE: 04/07/2022 15:26 INDICATION: Personal history of nicotine dependence, current smoker with 45 pack year history TECHNIQUE: Computed tomography (CT) of the chest was performed without intravenous contrast. The dose -length product (DLP) was 53.75 mGy-cm. Automated exposure control and iterative reconstruction techn [employer] were employed. COMPARISON: 08/22/2021 FINDINGS: There is mild emphysema. There are stable 2 mm nodules in the upper lobes. Calcified pulmon suly nodules and calcified right hilar lymph nodes are consistent with old granulomatous disease. Ther e are surgical changes in the left breast. No pathologically enlarged thoracic lymph nodes are identi fied. The heart size is normal. Calcified coronary artery atherosclerosis is noted. The gallbladder i s surgically absent. There are partially imaged changes of anterior fusion in the lower cervical spin e. There is moderate thoracic spondylosis. IMPRESSION: 1. Lung-RADS category 2: Benign appearance or behavior. Continue annual screening with noncontrast lo w-dose chest CT in 12 months. Reviewed, dictated and finalized at location B. ENGER RATE CLERK IMPRESSION: 1. Lung-RADS category 2: Benign appearance or behavior. Continue annual screeni ng with noncontrast low-dose chest CT in 12 months.
== END 2022-04-07 15:08 | disposition home or self-care (01) ==
LOC: ANHIMG 15:08
PROVIDERS: PCP Internal Medicine; Visit Provider Internal Medicine
DX: Z12.2 Encounter for screening for malignant neoplasm of respiratory organs (principal); Z87.891 Personal history of nicotine dependence
CPT/HCPCS: 71271

== ENCOUNTER 2022-07-02 11:40 | Outpatient (CLI) | payer MEDICARE, SELFPAY ==
--- NOTE | ~2022-07-02 | XR_ITS ---
Thoracic spine: Clinical Indication: Pain AP and lateral views were performed. No fracture is seen. There is normal alignment of the vertebrae. The intervertebral disc spaces appe ar normal. Paravertebral soft tissues appear normal. Impression: No significant abnormalities noted. Reviewed, dictated and finalized at [facility]. RITY STRATEGIST Impression: No significant abnormalities noted.
[2022-07-02 12:25] LABS: Alanine Aminotransferase 15 U/L (6-35); Albumin Level 4.1 g/dL (3.5-5.1); Alkaline Phosphatase 90 U/L (38-126); Anion Gap 3 mmol/L (8-16); Aspartate Amino Transferase 26 U/L (14-36); Bilirubin,Total 0.4 mg/dL (0.2-1.3); Blood Urea Nitrogen 6 mg/dL (7-17); Calcium 8.9 mg/dL (8.4-10.2); Carbon Dioxide 31 mmol/L (22-30); Chloride 106 mmol/L (98-107); Estimated Glomerular Filt Rate 55; Glucose 92 mg/dL (65-110); Potassium 4.3 mmol/L (3.4-5.0); Sodium 140 mmol/L (137-145)
[2022-07-02 12:56] LABS: Vitamin D 25 Hydroxy 44.2 ng/mL
[2022-07-05 18:50] LABS: PCP NEGATIVE ng/mL (<25)
[2022-07-12 08:09] LABS: Amphetamines Negative; Barbiturates Negative; Benzodiazepines Negative; Cocaine Metabolites Negative; Marijuana Metabolites Negative
== END 2022-07-02 11:41 | disposition home or self-care (01) ==
PROVIDERS: Internal Medicine; PCP Internal Medicine; Visit Provider Nurse Practitioner
DX: E55.9 Vitamin D deficiency, unspecified (principal); Z13.21 Encounter for screening for nutritional disorder; Z79.899 Other long term (current) drug therapy; M54.6 Pain in thoracic spine
CPT/HCPCS: 36415; 72072; 80053; 80307; 82306; 82607

== ENCOUNTER 2022-08-30 14:00 | Outpatient (CLI) | payer MEDICARE, SELFPAY ==
--- NOTE | ~2022-08-30 | MR_ITS ---
EXAMINATION: MR lumbar spine wo con DATE: 08/30/2022 14:34 INDICATION: Chronic low back pain with sciatica. TECHNIQUE: Magnetic resonance imaging (MRI) of the lumbar spine was performed without intravenous con trast. Sequences included sagittal T2-weighted FSE, sagittal T2-weighted FS FSE, sagittal T1-weighted FSE, and axial T2-weighted FSE. COMPARISON: Lumbar spine MRI 03/14/2011 FINDINGS: There is 3 mm anterolisthesis of L4 on L5. There is mild chronic anterior wedging of T11 an d T12 vertebral bodies. There is a hemangioma in T12 vertebral body. Intervertebral disc heights are normal in lumbar spine. The distal spinal cord signal intensity is normal. The conus medullaris is at L1-L2. The following disc levels are specifically discussed: L1-L2: The disc does not extend beyond the endplate margin. There is moderate bilateral facet joint o steoarthritis. There is no neural foraminal stenosis. There is no central canal stenosis. L2-L3: The disc is mildly bulging. There is severe bilateral facet joint osteoarthritis. There is mil d bilateral neural foraminal stenosis. There is no central canal stenosis. L3-L4: The disc is mildly bulging. There is severe bilateral facet joint osteoarthritis. There is mil d bilateral neural foraminal stenosis. There is no central canal stenosis. L4-L5: The disc is bulging. There is severe bilateral facet joint osteoarthritis. There is mild bilat eral neural foraminal stenosis. There is mild central canal stenosis. L5-S1: There is a central protrusion. There is severe bilateral facet joint osteoarthritis. There is no neural foraminal stenosis. There is mild central canal stenosis. IMPRESSION: 1. Mild lumbar spondylosis, slightly worsened from 03/14/2011. Reviewed, dictated and finalized at location A.
--- NOTE | ~2022-08-30 | XR_ITS ---
EXAMINATION: XR hip LT min 2V INDICATION: Left hip pain TECHNIQUE: Two views of the left hip are obtained. COMPARISON: 02/20/2021 FINDINGS: Bone alignment is normal. There is no fracture. There is mild osteoarthritis of the hip. Th ere are phleboliths of the pelvis. Mild osteitis pubis is noted. IMPRESSION: 1. Mild osteoarthritis. Reviewed, dictated and finalized at location B. IMPRESSION: 1. Mild osteoarthritis.
== END 2022-08-30 14:01 ==
PROVIDERS: PCP Internal Medicine; Visit Provider Internal Medicine
DX: M47.812 Spondylosis without myelopathy or radiculopathy, cervical region (principal); M47.816 Spondylosis without myelopathy or radiculopathy, lumbar region; G62.9 Polyneuropathy, unspecified; M16.12 Unilateral primary osteoarthritis, left hip
CPT/HCPCS: 72148; 73502

== ENCOUNTER 2022-09-23 12:24 | Outpatient (CLI) | payer MEDICARE, SELFPAY ==
--- NOTE | ~2022-09-23 | MR_ITS ---
MRI of the right knee Clinical history: Pain and swelling Technique: Coronal proton density and proton density-weighted images, sagittal proton-density and T2 fat-sat images, and axial proton-density fat-saturated images were acquired. Findings: Anterior and posterior cruciate ligaments are intact. Medial collateral ligament is intact. There is probable chronic partial tearing of the proximal fibular collateral ligament versus degener ative signal. Iliotibial band and biceps femoris tendons are intact. Popliteus tendon is intact. Suspected subtle horizontal tear at the very anterior horn of the lateral meniscus. No medial menisca l tear seen. There is moderate chondromalacia at the inner margin of the medial femoral condyle. Articular cartila ge in the lateral compartment is well preserved. Femoral trochlear cartilage is intact. There is high -grade chondromalacia extensive involving the patella, with areas of subchondral cystic change and re active marrow edema. Extensor mechanism is intact. Minimal joint effusion present. No Chapman's cyst. There is mild edematou s change of the popliteus muscle belly. Impression: Partial tearing of the proximal fibular collateral ligament. Muscle edema of the popliteus muscle belly, compatible low-grade muscle strain/injury. Probable subtle horizontal tear at the very anterior horn of the lateral meniscus. Advanced chondromalacia patella, as detailed above. Focal moderate chondromalacia at the inner margin of the medial femoral condyle. Reviewed, dictated and finalized at [facility]. Impression: Partial tearing of the proximal fibular collateral ligament. Muscle edema of the popliteus muscle belly, compatible low-grade muscle strain/ injury. Probable subtle horizontal tear at the very anterior horn of the lateral menisc us. Advanced chondromalacia patella, as detailed above. Focal moderate chondromalac ia at the inner margin of the medial femoral condyle.
--- NOTE | ~2022-09-23 | CT_ITS ---
CT scan of the Neck Technique: 2.5 mm axial scans were obtained through the neck without IV contrast initiation. Coronal and sagittal reconstructions of the neck were obtained. Dose reduction technique was used on this sca n by utilizing automated exposure control and iterative reconstruction technique. The dose-length pro duct (DLP) was 326.11 mGy-cm. Clinical History: Right-sided neck mass Findings: There is no evidence of any significant cervical lymphadenopathy. Several small, nonenlarged jugulo- digastric and posterior cervical lymph nodes are noted bilaterally. Parapharyngeal spaces appear norm al bilaterally. The parotid and submandibular glands appear normal. The pharyngeal mucosal spaces appear normal. No soft tissue masses are seen in the neck. Paranasal si nuses and mastoid air cells are clear. The thyroid gland appears normal. Images of the lung apices reveal mild emphysema. Impression: No significant abnormalities noted. Reviewed, dictated and finalized at [facility]. Impression: No significant abnormalities noted.
== END 2022-09-23 12:25 ==
LOC: GOSHIMG 12:25
PROVIDERS: PCP Nurse Practitioner; Visit Provider Nurse Practitioner
DX: R22.1 Localized swelling, mass and lump, neck (principal); S83.421A Sprain of lateral collateral ligament of right knee, initial encounter; S86.811A Strain of other muscle(s) and tendon(s) at lower leg level, right leg, initial encounter; M22.41 Chondromalacia patellae, right knee; X58.XXXA Exposure to other specified factors, initial encounter
CPT/HCPCS: 70490; 73721

== ENCOUNTER 2023-01-24 11:25 | Outpatient (CLI) | payer MEDICARE, SELFPAY ==
--- NOTE | ~2023-01-24 | XR_ITS ---
Left Knee Technique: AP, lateral, and sunrise views were obtained. Clinical History: Pain Findings: No fracture or dislocation is seen. Osseous alignment is anatomic. Minimal patellar spurrin g noted. Soft tissues are unremarkable. No joint effusion is seen. Impression: Minimal patellar spurring. Reviewed, dictated and finalized at location . Impression: Minimal patellar spurring.
[2023-01-24 12:30] LABS: Hematocrit 40.2 % (37.0-47.0); Mean Corpuscular HGB Conc 32.3 g/dl (32-36); Mean Corpuscular Hemoglobin 31.1 pg (26-34); Mean Corpuscular Volume 96.2 fl (80-100); Mean Platelet Volume 9.9 fl (7.4-10.4); Platelet Count Result 303 k/mm3 (150-375); Red Blood Count 4.18 M/mm3 (4.2-5.4); Red Cell Distribution Width 13.2 % (11.5-14.5); White Blood Count 6.9 K/mm3 (4.5-10.0)
[2023-01-24 12:42] LABS: Alanine Aminotransferase 15 U/L (6-35); Albumin Level 4.1 g/dL (3.5-5.1); Alkaline Phosphatase 68 U/L (38-126); Anion Gap 6 mmol/L (8-16); Aspartate Amino Transferase 27 U/L (14-36); Bilirubin,Total 0.2 mg/dL (0.2-1.3); Blood Urea Nitrogen 16 mg/dL (7-17); Carbon Dioxide 28 mmol/L (22-30); Chloride 105 mmol/L (98-107); Estimated Glomerular Filt Rate > 60; Glucose 90 mg/dL (65-110); Potassium 4.6 mmol/L (3.4-5.0); Sodium 139 mmol/L (137-145)
[2023-01-24 13:09] LABS: Vitamin D 25 Hydroxy 36.5 ng/mL
[2023-01-24 13:13] LABS: Thyroid Stimulating Hormone 0.674 uIU/mL (0.465-4.680)
== END 2023-01-24 11:26 | disposition home or self-care (01) ==
PROVIDERS: PCP Family Medicine; Visit Provider Family Medicine
DX: G89.29 Other chronic pain (principal); R53.83 Other fatigue; E55.9 Vitamin D deficiency, unspecified; F31.9 Bipolar disorder, unspecified; F41.9 Anxiety disorder, unspecified; G62.9 Polyneuropathy, unspecified; I25.10 Atherosclerotic heart disease of native coronary artery without angina pectoris; J44.9 Chronic obstructive pulmonary disease, unspecified; K21.9 Gastro-esophageal reflux disease without esophagitis; M54.2 Cervicalgia; M54.6 Pain in thoracic spine; M25.562 Pain in left knee; I12.9 Hypertensive chronic kidney disease with stage 1 through stage 4 chronic kidney disease, or unspecified chronic kidney disease; N18.4 Chronic kidney disease, stage 4 (severe)
CPT/HCPCS: 36415; 73562; 80053; 82306; 84443; 85027

== ENCOUNTER 2023-03-10 10:06 | Outpatient (CLI) | payer MEDICARE, SELFPAY ==
--- NOTE | ~2023-03-10 | XR_ITS ---
EXAMINATION: XR abdomen/kub 1V INDICATION: Constipation, unspecified TECHNIQUE: Supine views of the abdomen were obtained on 2 radiographs. COMPARISON: None FINDINGS: A moderate volume of colonic stool is present. The bowel gas pattern is normal. Cholecystec grady clips are noted. There are phleboliths of the pelvis. The visualized lung bases are clear. IMPRESSION: 1. Moderate volume of colonic stool. Reviewed, dictated and finalized at location L.
[2023-03-10 12:30] LABS: Appearance Urine Cloudy (Clear); Bacteria Urine Rare /hpf; Bilirubin Urine Negative (Negative); Blood Urine 2+ (Negative); Color Urine Dark Yellow (Yellow); Glucose Urine UA Negative (Negative); Ketones Urine Negative (Negative); Leukocyte Esterase Ur Trace LEU/UL (NEGATIVE); Nitrate Urine Negative (Negative); Non Pathogenic Casts 0-2; Protein Urine Trace mg/dL (Negative); Specific Grav Ur 1.018 (1.001-1.035); Squamous Epithelial Cell Urine Few /hpf (Few); WBC Urine 0-5 /hpf (0-3); pH Urine 5.5 (5.0-9.0)
[2023-03-10 12:33] LABS: Add Urine Microscopic? YES
== END 2023-03-10 10:07 | disposition home or self-care (01) ==
PROVIDERS: PCP Family Medicine; Visit Provider Family Medicine
DX: K59.00 Constipation, unspecified (principal); R10.9 Unspecified abdominal pain
CPT/HCPCS: 74018; 81001; 87086

== ENCOUNTER 2023-04-28 13:08 | Outpatient (CLI) | payer MEDICARE, SELFPAY ==
[2023-04-28 15:31] LABS: Appearance Urine Clear (Clear); Bacteria Urine None Seen /hpf; Bilirubin Urine Negative (Negative); Blood Urine 1+ (Negative); Color Urine Yellow (Yellow); Glucose Urine UA Negative (Negative); Ketones Urine Negative (Negative); Leukocyte Esterase Ur Negative LEU/UL (NEGATIVE); Need Manual Microscopic Reviewed; Nitrate Urine Negative (Negative); Non Pathogenic Casts 0-2; Protein Urine Negative (Negative); RBC Urine 0-2 /hpf (0-2); Specific Grav Ur 1.002 (1.001-1.035); Squamous Epithelial Cell Urine None seen /hpf (Few); Urobilinogen Urine 0.2 mg/dL (<2.0); WBC Urine 0-5 /hpf (0-3); pH Urine 5.5 (5.0-9.0)
[2023-04-28 15:33] LABS: Add Urine Microscopic? YES
== END 2023-04-28 13:09 | disposition home or self-care (01) ==
LOC: ANHGOSHLAB 13:09
PROVIDERS: Visit Provider Nurse Practitioner Family
DX: R30.0 Dysuria (principal)
CPT/HCPCS: 81001; 87086

== ENCOUNTER 2023-04-28 13:17 | Outpatient (CLI) | payer MEDICARE, SELFPAY ==
--- NOTE | ~2023-04-28 | CT_ITS ---
EXAMINATION: CT abdomen pelvis w con DATE: 04/28/2023 14:38 INDICATION: Unspecified abdominal pain TECHNIQUE: Computed tomography (CT) of the abdomen and pelvis was performed with 100 mL Omnipaque-350 intravenous contrast. Automated exposure control and iterative reconstruction technique were employe d. The dose-length product was 329.66 mGy-cm. COMPARISON: CT dated 04/07/2018 FINDINGS: Calcified right lower lobe nodule consistent with old granulomatous disease. Prominent peripheral enh ancement at a chronic lesion at the dome of the liver currently measuring 1 cm which measured 8 mm in maximal diameter in 2017 favoring a benign etiology most likely a hemangioma. Chronic dilation of th e common bile duct currently measuring 1.6 cm with mild intrahepatic biliary ductal dilation which ma y relate to prior cholecystectomy with surgical clips the gallbladder fossa. Pancreas, spleen and sonali ateral adrenal glands are normal. Bilateral renal cysts, the largest measuring 1.1 cm maximal diameter. Bladder is normal. The uterus i s not identified and has likely been surgically resected. There are few scattered sigmoid diverticula without adjacent from trace stranding to suggest diverticulitis. There is fluid in the proximal colo n consistent with nonspecific diarrhea. Small bowel and appendix are normal. Minimal likely physiolog ic free fluid in the pelvis. No abscess or free intraperitoneal gas. No pathologically enlarged abdom inal or pelvic lymphadenopathy. Moderate lower thoracic spondylosis with stable appearance of chronic mild anterior wedging at T10-T12. IMPRESSION: 1. Nonspecific diarrhea. No other acute intra-abdominal/pelvic process. 2. Chronic intra and extra hepatic biliary ductal dilation likely related to prior cholecystectomy. C ould consider correlation with liver function tests and if there is clinical concern for biliary obst ruction. Reviewed, dictated and finalized at location A. ENTER IMPRESSION: 1. Nonspecific diarrhea. No other acute intra-abdominal/pelvic process. 2. Chronic intra and extra hepatic biliary ductal dilation likely related to pr ior cholecystectomy. Could consider correlation with liver function tests and i f there is clinical concern for biliary obstruction.
[2023-04-28 14:28] LABS: Estimated Glomerular Filt Rate 55
== END 2023-04-28 13:18 ==
LOC: GOSHIMG 13:18
PROVIDERS: PCP Family Medicine; Visit Provider Nurse Practitioner Family
DX: R10.9 Unspecified abdominal pain (principal); K59.09 Other constipation
CPT/HCPCS: 74177; Q9967

== ENCOUNTER → 2023-04-28 13:28 | Outpatient (CLI) | payer MEDICARE, SELFPAY ==
--- NOTE | ~2023-04-28 | MR_ITS ---
MRI of the thoracic spine Clinical History: Pain Technique: Axial T2-weighted and gradient images, and sagittal T1-weighted, T2-weighted, and STIR karen ges were acquired. COMPARISON: 11/16/2017 Findings: There is no fracture or subluxation of the thoracic spine. Osseous alignment is stable from prior exam. Stable intraosseous hemangiomas noted. No suspicious bone marrow signal abnormality seen . There is mild to moderate degenerative disc narrowing throughout the thoracic spine. No significant d isc bulge or herniation identified. No spinal canal stenosis or cord compression seen. Paravertebral soft tissues are unremarkable. Impression: No acute abnormality. Stable degenerative spondylosis. Stable intraosseous hemangiomas. Reviewed, dictated and finalized at location . TRICAL DESIGNER Impression: No acute abnormality. Stable degenerative spondylosis. Stable intraosseous hemangiomas.
== END ==
PROVIDERS: PCP Family Medicine; Visit Provider Family Medicine
DX: M54.6 Pain in thoracic spine (principal)
CPT/HCPCS: 72146

== ENCOUNTER 2023-06-06 09:28 | Emergency (ER) | payer MEDICARE, SELFPAY ==
--- NOTE | 2023-06-06 10:06 | PC.NURSE ---
Pt states, I am in severe pain, I have a kidney stone, and I cannot sit here so I am going somewhere else and walked out.
== END 2023-06-06 11:28 | disposition left against medical advice (07) ==
LOC: ANHED 10:13
PROVIDERS: PCP Family Medicine
DX: Z53.21 Procedure and treatment not carried out due to patient leaving prior to being seen by health care provider (principal)
CPT/HCPCS: 99199

== ENCOUNTER 2023-06-15 10:17 | Emergency (ER) | payer MEDICARE, SELFPAY ==
--- NOTE | ~2023-06-15 | CT_ITS ---
EXAMINATION: CT abdomen pelvis wo con DATE: 06/15/2023 11:40 INDICATION: Renal stone. Kidney infection for weeks. TECHNIQUE: Computed tomography (CT) of the abdomen and pelvis was performed without intravenous contr ast. Automated exposure control and iterative reconstruction technique were employed. Exam dose: 189 .62 mGy-cm total exam DLP. COMPARISON: 04/28/2023 CT abdomen pelvis FINDINGS: The lung bases are clear of infiltrate or consolidation. Normal heart size. No pericardial or pleural effusion. Status post cholecystectomy. The liver, spleen, pancreas, adrenal glands are unremarkable. Status post cholecystectomy. No urinary tract calculus or hydroureteronephrosis is evident. No renal mass lesion is evident on thi s limited noncontrast examination. There is atherosclerotic calcification of the abdominal aorta and prominent calcification at the orig ins of the renal arteries. No abdominal aortic aneurysm. Status post hysterectomy. The urinary bladder is unremarkable. Normal appendix. No bowel obstruction. There is some nonspecific fluid-containing small bowel segment s small bowel air-fluid levels. Symmetric with stool was noted in the cecum and ascending colon. No a bnormal small bowel or large bowel dilatation or bowel wall thickening is noted. No pneumatosis or in traperitoneal free air. Likely chronic anterior wedging of T11 and particularly T12. Prominent degenerative change at the lum bar apophyseal joints, without associated spondylolisthesis. No suspicious osteolytic or osteoblastic lesions. IMPRESSION: Fluid containing small bowel segments, small bowel air-fluid levels and liquids to the r ight colon; consider enterocolitis No bowel obstruction or intraperitoneal free air Normal appendix Status post cholecystectomy Status post hysterectomy Reviewed, dictated and finalized at Location A. Reviewed, dictated and finalized at location B. 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
[2023-06-15 10:17] VITALS: BP 136/62; PULSE 92; RESP 18; TEMP 36.4; O2SAT 99
[2023-06-15 10:32] VITALS: BP 138/98; PULSE 79; RESP 16; O2SAT 100
[2023-06-15 10:40] LABS: Basophils Absolute Auto 0.1 K/mm3 (0.0-0.1); Basophils Percent Auto 1.3 % (0.2-1.2); Eosinophils Absolute Auto 0.1 K/mm3 (0-0.3); Eosinophils Percent Auto 2.4 % (0-4.4); Hematocrit 41.1 % (37.0-47.0); Hemoglobin 12.6 g/dL (12.0-15.0); Immature Granulocyte Absolute 0.02 K/mm3 (0.00-0.031); Immature Granulocyte Percent A 0.3 % (0-0.5); Lymphocytes Absolute Auto 2.22 K/mm3 (0.9-3.2); Lymphocytes Percent Auto 37.3 % (18.3-44.2); Mean Corpuscular HGB Conc 30.7 g/dl (32-36); Mean Corpuscular Hemoglobin 30.2 pg (26-34); Mean Corpuscular Volume 98.6 fl (80-100); Mean Platelet Volume 10.4 fl (7.4-10.4); Monocytes Absolute Auto 0.5 K/mm3 (0.1-0.6); Monocytes Percent Auto 8.4 % (2.6-8.5); Neutrophils Percent Auto 50.3 % (45.5-73.1); Platelet Count Result 301 k/mm3 (150-375); Red Blood Count 4.17 M/mm3 (4.2-5.4); Red Cell Distribution Width 12.5 % (11.5-14.5)
--- NOTE | 2023-06-15 10:43 | ED.ABDPAIN ---
HPI - Abdominal Pain General Chief Complaint: Abdominal Pain Stated Complaint: kidney infection Time Seen by Provider: 06/15/23 10:19 History of Present Illness HPI narrative: Patient is 68-year-old female who presents to the emergency department this morning complaining of right-sided flank pain. Patient states that approximately a week ago she was seen at a different ER and diagnosed with a bladder and kidney infection and finished a week long course of antibiotics. The patient states that she still has the pain in her right flank which radiates to her right upper abdomen. Patient also admits that recently she did hit her right psis lower rib region where her pain is on a shopping cart and is wondering if that could be causing her pain. Patient denies any additional symptoms including chest pain, shortness of breath, nausea, vomiting, dysuria, hematuria, constipation, diarrhea, melena, hematochezia, fevers or chills. Patient also denies any headaches, dizziness, lightheadedness, blurry visions, focal weakness, numbness and or tingling. There are no other modifying, alleviating, or precipitating factors at this time. Related Data Home Medications Medication Instructions Recorded Confirmed cholecalciferol (vitamin D3) 50 2,000 unit PO DAILY 03/26/19 04/18/23 mcg (2,000 unit) capsule Allergies Allergy/AdvReac Type Severity Reaction Status Date / Time povidone-iodine Allergy Swelling Verified 06/15/23 10:29 [From Betadine] Review of Systems Review of Systems: All systems are reviewed and are negative unless stated otherwise in the HPI. [facility] Past Medical History Medical History Allergies Anxiety (09/26/18) Arthritis of right knee Chronic generalized pain Chronic headache Chronic left shoulder pain Chronic obstructive pulmonary disease, unspecified Corns and callosities Coronary arteriosclerosis in [place] artery Degenerative joint disease of cervical and lumbar spine Discoloration of skin Dysphagia Essential (primary) hypertension Gastro-esophageal reflux disease without esophagitis Hepatitis B History of breast cancer Hyperlipidemia Kidney disease, chronic, stage II (GFR 60-89 ml/min) Left hip pain Left knee pain Left upper arm pain Multiple lesions of face Peripheral neuropathy Pure hypercholesterolemia Scalp lesion Trochanteric bursitis, left hip Vitamin D deficiency Surgical History Surgical History History of bladder surgery History of cholecystectomy History of knee surgery left knee- 1 bone tumor removed, 2 knee scopes History of neck surgery History of partial mastectomy History of tonsillectomy History of total hysterectomy Family History Family History Mother Hypertension Carcinoma of colon History of lung cancer Kidney disease Father Patient's father is Sibling Kidney disease Social History Social History Smoking packs per day: 1 Smoking cigarettes per day: 20.0 Years smoked: 30 Smoking pack-years: 30.00 Smoking status: Current every day smoker Tobacco type: cigarettes Second hand tobacco smoke exposure: Yes Alcohol intake: current Alcohol use details: rarely Substance use: never Substance use type: does not use Lack of Transportation: No Lack of Food: Never True Current Housing: I Have Housing Concerned About Future Housing: No Difficulty Paying Gas/Electric Bills: No Difficulty Paying for Meds: No Currently Unemployed: No Education: High School Diploma/GED Difficulty w/ Childcare or Family Care: YES Living arrangements: with family Additional living arrangements comments: lives with 95yo mother and adult son Occupation/Education: retired Exam Narrative: General: Alert,
[2023-06-15 10:51] LABS: Alanine Aminotransferase 12 U/L (6-35); Albumin Level 4.4 g/dL (3.5-5.1); Alkaline Phosphatase 84 U/L (38-126); Anion Gap 7 mmol/L (8-16); Aspartate Amino Transferase 27 U/L (14-36); Bilirubin,Total 0.4 mg/dL (0.2-1.3); Blood Urea Nitrogen 13 mg/dL (7-17); Calcium 9.3 mg/dL (8.4-10.2); Carbon Dioxide 22 mmol/L (22-30); Chloride 108 mmol/L (98-107); Estimated CRCL calculation 31 ml/min; Estimated Glomerular Filt Rate 49; Glucose 89 mg/dL (65-110); Potassium 4.6 mmol/L (3.4-5.0); Sodium 137 mmol/L (137-145)
[2023-06-15 11:18] LABS: Appearance Urine Clear (Clear); Bacteria Urine None Seen /hpf; Bilirubin Urine Negative (Negative); Blood Urine 1+ (Negative); Color Urine Yellow (Yellow); Glucose Urine UA Negative (Negative); Ketones Urine Negative (Negative); Leukocyte Esterase Ur Negative LEU/UL (Negative); Nitrate Urine Negative (Negative); Non Pathogenic Casts 0-2; Protein Urine Negative (Negative); RBC Urine 0-2 /hpf (0-2); Specific Grav Ur 1.008 (1.001-1.035); Squamous Epithelial Cell Urine Occasional /hpf (Few); Urobilinogen Urine 0.2 mg/dL (<2.0); WBC Urine 0-5 /hpf; pH Urine 5.5 (5.0-9.0)
[2023-06-15 11:20] VITALS: BP 141/103; PULSE 72; RESP 20; O2SAT 98
[2023-06-15 11:21] LABS: Add Urine Microscopic? YES
[2023-06-15] MEDS: MORPHINE SULFATE (*CRX) 4 MG/ML INJ IV PUSH (11:44)
[2023-06-15] MEDS: SODIUM CHLORIDE 0.9% IV 1,000 ML 999 ML IV CONT (11:44)
[2023-06-15] MEDS: ONDANSETRON INJ 4 MG/2 ML VIAL IV PUSH (11:44)
[2023-06-15] MEDS: LIDOCAINE 5% PATCH 1 PATCH TRANSDERM (12:27)
[2023-06-15 12:32] VITALS: BP 122/75; PULSE 70; RESP 20; O2SAT 99
== END 2023-06-15 12:32 | disposition home or self-care (01) ==
LOC: ANHED 10:55
PROVIDERS: Emergency Provider Emergency Medicine; PCP Family Medicine
DX: S20.211A Contusion of right front wall of thorax, initial encounter (principal); F41.9 Anxiety disorder, unspecified; J44.9 Chronic obstructive pulmonary disease, unspecified; I25.10 Atherosclerotic heart disease of native coronary artery without angina pectoris; K21.9 Gastro-esophageal reflux disease without esophagitis; E78.5 Hyperlipidemia, unspecified; I12.9 Hypertensive chronic kidney disease with stage 1 through stage 4 chronic kidney disease, or unspecified chronic kidney disease; N18.2 Chronic kidney disease, stage 2 (mild)
CPT/HCPCS: 36415; 74176; 80053; 81001; 85025; 96374; 96375; 99284; A9270; J2270; J2405; J7030

== ENCOUNTER 2023-06-23 12:05 | Outpatient (CLI) | payer MEDICARE, SELFPAY ==
--- NOTE | ~2023-06-23 | XR_ITS ---
EXAMINATION: XR_RIBSBI_CR DATE: 06/23/2023 12:27 INDICATION: Pleurodynia. Chest injury. TECHNIQUE: 2 views of the right ribs on 3 radiographs and 2 views of the left ribs on 3 radiographs w ere obtained. COMPARISON: None. FINDINGS: A calcified right lung nodule and calcified right hilar lymph nodes are consistent with old granulomatous disease. No pleural effusion or pneumothorax. The heart size is normal. Surgical clips in the right upper quadrant are likely from cholecystectomy. There are changes of anterior fusion pr ocedure in cervical spine. IMPRESSION: 1. No rib fracture. Reviewed, dictated and finalized at location E. L ENGINEERING INTERN IMPRESSION: 1. No rib fracture.
== END 2023-06-23 12:06 ==
PROVIDERS: PCP Family Medicine; Visit Provider Family Medicine
DX: R07.81 Pleurodynia (principal)
CPT/HCPCS: 71110

== ENCOUNTER 2023-07-11 10:05 | Outpatient (CLI) | payer MEDICARE, SELFPAY ==
--- NOTE | ~2023-07-11 | MR_ITS ---
EXAMINATION: MR thoracic spine wo con DATE: 07/11/2023 10:42 INDICATION: Right-sided thoracic back pain. TECHNIQUE: Magnetic resonance imaging (MRI) of the thoracic spine was performed without intravenous c ontrast. Sagittal localizer T1-weighted FSE of the cervical spine was obtained. Thoracic spine sequen irene included sagittal T2-weighted FSE, sagittal T1-weighted FSE, sagittal T2-weighted FS FSE, and axi al T2-weighted FSE. COMPARISON: Thoracic spine MRI 04/28/2023 FINDINGS: There are changes of anterior fusion procedure from C4 to C7 with anterior plate and screws . There is kyphosis of thoracic spine. There are Schmorl's nodes at most levels. There is mild chroni c anterior wedging of T6, T7, T8, T11, and T12 vertebral bodies. There is moderately decreased disc h eight at T1-T2 and T2-T3, mildly decreased disc height at T5-T6, moderately decreased disc height at T6-T7, T7-T8, and T8-T9, severely decreased disc height at [id number], and mildly decreased disc heig ht at T10-T11 and T11-T12. At T9-T10, there is a central extrusion with mild central canal stenosis. At T10-T11, there is a central extrusion with mild central canal stenosis. There is multilevel facet joint osteoarthritis, severe in upper thoracic spine. On the right, there is mild neural foraminal st enosis at T1-T2 and T2-T3. On the left, there is mild neural foraminal stenosis at T1-T2 and T2-T3. T he spinal cord signal intensity is normal. IMPRESSION: 1. Moderate thoracic spondylosis. Reviewed, dictated and finalized at location A. MANAGEMENT ADVISER
== END 2023-07-11 10:06 ==
LOC: GOSHIMG 10:05
PROVIDERS: PCP Family Medicine; Visit Provider Nurse Practitioner
DX: M47.24 Other spondylosis with radiculopathy, thoracic region (principal)
CPT/HCPCS: 72146

== ENCOUNTER 2023-08-30 08:57 | Outpatient (CLI) | payer MEDICARE, SELFPAY ==
--- NOTE | ~2023-08-30 | MMUS_ITS ---
EXAMINATION: US breast LT limited, MM diagnostic jessica BI w helena HISTORY: Chronic left breast pain after breast cancer. Palpable breast lumps. TECHNIQUE: Additional 3-D tomosynthesis images of the breasts were performed and synthetic 2-D images were generated. CAD analysis was submitted and interpreted. High resolution Limited left breast ultr asound was performed. COMPARISON: 08/21/2020 BREAST PARENCHYMAL COMPOSITION: Not dense: There are scattered areas of fibroglandular density. FINDINGS: MAMMOGRAPHIC FINDINGS: The breasts are stable. No new masses, calcifications or architectural distortion in either breast to suggest malignancy. There are coarse dystrophic calcifications in the upper inner quadrant of the le ft breast, middle third, corresponding to prior surgical site. ULTRASOUND: Limited left breast ultrasound: At 10:00, 5 cm from the nipple in the area of palpable concern there is echogenic focus with dense posterior shadowing measuring 1 cm, corresponding to the dystrophic louise cifications seen by mammography. No suspicious masses to suggest malignancy. There is a adjacent 4 mm similar-appearing hyperechoic focus with shadowing, also corresponding dystrophic calcification. IMPRESSION: 1. No evidence for malignancy in either breast. Benign findings. 2. Routine yearly screening mammogram and regular clinical breast examination are recommended. BI-RADS Category 2: Benign finding(s). Reviewed, dictated and finalized at location B. IMPRESSION: 1. No evidence for malignancy in either breast. Benign findings. 2. Routine yearly screening mammogram and regular clinical breast examination a re recommended. BI-RADS Category 2: Benign finding(s).
== END 2023-08-30 08:58 ==
PROVIDERS: PCP Family Medicine; Visit Provider Family Medicine
DX: N64.4 Mastodynia (principal); Z85.3 Personal history of malignant neoplasm of breast
CPT/HCPCS: 76642; 77062; 77066; G0279

== ENCOUNTER 2023-09-23 07:36 | Outpatient (CLI) | payer MEDICARE, SELFPAY ==
[2023-09-23 08:48] LABS: CRP < 0.5 mg/dL (<1.0)
[2023-09-23 09:22] LABS: Erythrocyte Sedimentation Rate 15 mm/hr (0-20)
[2023-09-26 13:34] LABS: Lyme Disease Ab (IgM), Blot NEGATIVE (NEGATIVE); Lyme Disease Ab(IgG), Blot NEGATIVE (NEGATIVE)
== END 2023-09-23 07:37 | disposition home or self-care (01) ==
LOC: ANHLAB 07:39
PROVIDERS: PCP Nurse Practitioner; Visit Provider Nurse Practitioner
DX: M79.18 Myalgia, other site (principal)
CPT/HCPCS: 36415; 85652; 86038; 86140; 86617

== ENCOUNTER 2024-01-23 09:17 | Outpatient (CLI) | payer MEDICARE, SELFPAY ==
[2024-01-23 09:52] LABS: Hematocrit 40.6 % (37.0-47.0); Hemoglobin 13.3 g/dL (12.0-15.0); Mean Corpuscular HGB Conc 32.8 g/dl (32-36); Mean Corpuscular Hemoglobin 31.2 pg (26-34); Mean Corpuscular Volume 95.3 fl (80-100); Mean Platelet Volume 9.9 fl (7.4-10.4); Platelet Count Result 397 k/mm3 (150-375); Red Blood Count 4.26 M/mm3 (4.2-5.4)
[2024-01-23 10:08] LABS: Alanine Aminotransferase 10 U/L (6-35); Albumin Level 4.1 g/dL (3.5-5.1); Alkaline Phosphatase 77 U/L (38-126); Anion Gap 8 mmol/L (4-12); Aspartate Amino Transferase 24 U/L (14-36); Bilirubin,Total 0.4 mg/dL (0.2-1.3); Blood Urea Nitrogen 10 mg/dL (7-17); Calcium 8.9 mg/dL (8.4-10.2); Carbon Dioxide 27 mmol/L (22-30); Chloride 103 mmol/L (98-107); Cholesterol 199 mg/dL (0-200); Estimated Glomerular Filt Rate > 60; Glucose 75 mg/dL (65-110); HDL Direct 78 mg/dL; Potassium 3.6 mmol/L (3.4-5.0); Sodium 138 mmol/L (137-145); Triglycerides 101 mg/dL (<150)
[2024-01-23 10:19] LABS: LDL Cholesterol Direct 93 mg/dL
[2024-01-23 11:14] LABS: Add Urine Microscopic? YES; Appearance Urine Clear (Clear); Bacteria Urine None Seen /hpf; Bilirubin Urine Negative (Negative); Blood Urine 2+ (Negative); Color Urine Yellow (Yellow); Glucose Urine UA Negative (Negative); Hyaline Casts Urine Present /lpf; Ketones Urine Trace mg/dL (Negative); Leukocyte Esterase Ur Negative LEU/UL (Negative); Need Manual Microscopic Reviewed; Nitrate Urine Negative (Negative); Protein Urine Trace mg/dL (Negative); Specific Grav Ur 1.017 (1.001-1.035); Squamous Epithelial Cell Urine Moderate /hpf (Few); WBC Urine 0-5 /hpf (0-3); pH Urine 5.5 (5.0-9.0)
== END 2024-01-23 09:18 | disposition home or self-care (01) ==
PROVIDERS: PCP Family Medicine; Visit Provider Family Medicine
DX: R10.9 Unspecified abdominal pain (principal); N39.0 Urinary tract infection, site not specified; M54.14 Radiculopathy, thoracic region; K59.03 Drug induced constipation; G89.29 Other chronic pain; I11.0 Hypertensive heart disease with heart failure; Z79.899 Other long term (current) drug therapy
CPT/HCPCS: 36415; 80053; 80061; 81001; 85027; 87086

== ENCOUNTER 2024-01-27 13:31 | Outpatient (CLI) | payer MEDICARE, SELFPAY ==
--- NOTE | ~2024-01-27 | CT_ITS ---
Non-contrast CT scan of the Abdomen and Pelvis Clinical indication: Abdominal pain Technique: 2.5 mm axial scans were obtained through the abdomen and pelvis without intravenous or or al contrast. Dose reduction technique was used on this scan by utilizing automated exposure control a nd iterative reconstruction technique. The dose-length product (DLP) was 199.99 mGy-cm. COMPARISON: 06/15/2023 Findings: Images through the lung bases reveal no abnormalities. There is no evidence of renal or ureteral calculi. The kidneys and the ureters are nondilated. The liver, spleen, pancreas, and adrenals appear normal. Cholecystectomy clips are present. There are atherosclerotic calcifications of the aorta. There is no evidence of bowel obstruction. Images through the pelvis were performed. There is no evidence of ascites or lymphadenopathy. Urinary bladder unremarkable. No pelvic mass seen. Impression: No acute abnormality. Reviewed, dictated and finalized at [facility]. Impression: No acute abnormality.
== END 2024-01-27 13:32 | disposition home or self-care (01) ==
LOC: ANHIMG 13:33
PROVIDERS: PCP Family Medicine; Visit Provider Nurse Practitioner Family
DX: R10.9 Unspecified abdominal pain (principal); R31.29 Other microscopic hematuria
CPT/HCPCS: 74176

== ENCOUNTER 2024-03-28 09:47 | Outpatient (CLI) | payer MEDICARE, SELFPAY ==
--- NOTE | ~2024-03-28 | NM_ITS ---
EXAMINATION: NM warren stress w perfusion DATE: 03/28/2024 13:02 INDICATION: Chest pain TECHNIQUE: Rest images were obtained following intravenous administration of 9 mCi Tc99m tetrofosmin (Myoview). The patient was infused intravenously with Lexiscan (Regadenoson). Then, 26.6 mCi Tc99m te trofosmin (Myoview) was administered intravenously, and stress images were obtained. Data was reconst ructed into short axis and horizontal and vertical long axis SPECT images. Gated SPECT images were al so obtained. COMPARISON: None. FINDINGS: There is no definite reversible or fixed perfusion abnormality to suggest ischemia or infar ction. There is normal left ventricular chamber size, wall motion and ejection fraction. Left ventr icular ejection fraction measures >70%. IMPRESSION: 1. Normal myocardial perfusion at rest and during stress. 2. Left ventricular ejection fraction measuring >70%. Reviewed, dictated and finalized at location A.
--- NOTE | 2024-03-28 09:52 | ECHO_ITS ---
Patient Info Name: Ghada Espino Age: 68 years : 1955 Gender: Female Ht: 60 in Wt: 120 lbs BSA: 1.53 m2 HR: 76 bpm BP: 171 / 111 mmHg Technical Quality: Fair Exam Date: 03/28/2024 12:04 PM Exam Location: Echo Lab Patient Status: Outpatient Admit Date: 03/28/2024 Staff Ordering Physician: Chuckie Tejeda DO Proposal Analyst: Bethel Gill RDCS Attending Provider: Chuckie Tejeda DO Referring Physician: Nikhil MUNROE; Exam Type: CA echo doppler color flow Study Info Indications R06.00 - Dyspnea, unspecified Complete two-dimensional, color flow and Doppler transthoracic echocardiogram is performed. Strain analysis performed. Summary 1. Complete two-dimensional, color flow and Doppler transthoracic echocardiogram is performed. 2. Left ventricular chamber dimension is normal. 3. Left ventricular systolic function is normal, estimated at 60-65%. 4. There is mild concentric increased left ventricular wall thickness. 5. The left ventricular diastolic function is grade I diastolic dysfunction. 6. E/e' 10 is mildly elevated. 7. Global longitudinal strain is abnormal at -15.9%. 8. There is trace aortic valve regurgitation. Left Ventricle E/e' 10 is mildly elevated. Global longitudinal strain is abnormal at -15.9%. Left ventricular chamber dimension is normal. Left ventricular systolic function is normal, estimated at 60-65%. There is mild concentric increased left ventricular wall thickness. The left ventricular diastolic function is grade I diastolic dysfunction. Right Ventricle Right ventricular chamber dimension is normal. Right ventricular systolic function is normal. Left Atria Left atrial chamber dimension is normal. Right Atria Right atrial chamber dimension is normal. Aortic Valve The aortic valve is probable trileaflet. There is no aortic valve stenosis. There is trace aortic valve regurgitation. Pulmonic Valve There is no pulmonic regurgitation. Mitral Valve There is no mitral valve stenosis. There is no mitral valve regurgitation. Tricuspid Valve There is no tricuspid valve regurgitation. Pericardium/Pleural There is no pericardial effusion. Inferior Vena Cava Normal inferior vena cava with >50% collapse upon inspiration consistent with normal right atrial pressure, 5 mmHg. Aorta The aortic root size at the sinus of Valsalva is normal. Left Ventricular Outflow Tract Name Value Normal LVOT 2D LVOT Diameter 1.9 cm LVOT Doppler LVOT Peak Gradient 4 mmHg LVOT Mean Gradient 2 mmHg LVOT VTI 17 cm LVOT VTI/AV VTI Ratio 0.8 LVOT Stroke Volume 49 ml LVOT CO 3.4 l/min LVOT CI 2.2 l/min/m2 Pulmonic Valve Name Value Normal PV Doppler PV Peak Gradient 2 mmHg Mitral Valve Name Value Normal MV Doppler MV Decel [place] 296 cm/s2 MV PHT 52 ms MV Area (PHT) 4.3 cm2 4.0-5.0 MV Diastolic Function MV E Peak Velocity 53 cm/s MV A Peak Velocity 84 cm/s MV E/A 0.6 MV Decel Time 178 ms Tricuspid Valve Name Value Normal Estimated PAP/RSVP RA Pressure 5 mmHg <=5 Aorta Name Value Normal Ascending Aorta Ao Root Diameter (MM) 2.4 cm Ao Root Diam Index (MM) 1.6 cm/m2 Aortic Valve Name Value Normal AV Doppler AV Peak Velocity 117 cm/s AV Peak Gradient 6 mmHg AV Mean Gradient 3 mmHg AV VTI 21 cm AV Area (Cont Eq VTI) 2.3 cm2 >=3.0 AV Area (Cont Eq Ottoniel) 2.4 cm2 AV Regurgitation 2D LVOT Area 2.8 cm2 AV Regurgitation Doppler AR Decel Time 2,105 ms AR Decel [place] 174 cm/s2 AR PHT 610 ms Ventricles Name Value Normal LV Dimensions 2D/MM IVS Diastolic Thickness (2D) 0.9 cm 0.6-1.0 IVS Diastole Thickness (MM) 0.8 cm 0.6-0.9 LVID Diastole (2D) 3.6 cm 3.8-5.2 LVID Diastole (MM) 3.8 cm 3.8-5.2 LVIW Diastolic Thickness (2D) 0.9 cm 0.6-0.9 LVIW Diastolic Thickness (MM) 0.9 cm 0.6-0.9 LVID Systole (2D) 2.7 cm 2.2-3.5 LVID Systole (MM) 2.2 cm 2.2-3.5 LVOT Diameter 1.9 cm LV Mass (2D Cubed) 96.72 g 67.00-162.00 LV Mass Index (2D Cubed) 63 g/m2 43-95 Relative Wall Thickness (2D) 0.51 LV Mass (MM Cubed) 91.48 g 67.00-162.00 LV Mass Index (MM Cubed) 60 g/m2 43-95 Relative Wall Thickness (MM) 0.47 LV Fractional Shortening/Ejection Fraction 2D/MM LV Fractional Shortening (2D) 26 % 27-45 LV Fractional Shortening (MM) 43 % 27-45 LV EF (MM Teicholz) 75 % 54-74 LV EF (2D Teicholz) 52 % 54-74 LV Diastolic Volume (4C MOD) 44 ml LV EF (4C MOD) 65 % LV Diastolic Volume (2C MOD) 43 ml LV EF (2C MOD) 59 % LV Diastolic Volume (BP MOD) 45 ml 46-106 LV Diastolic Volume Index (BP MOD) 29 ml/m2 29-61 LV Systolic Volume (BP MOD) 18 ml 14-42 LV Systolic Volume Index (BP MOD) 11 ml/m2 8-24 LV EF (BP MOD) 61 % 54-74 LV Diastolic Length (4C) 7.4 cm LV Systolic Length (4C) 6.7 cm LV Stroke Volume (4C MOD) 29 ml Atria Name Value Normal LA Dimensions LA Dimension (MM) 3.0 cm 2.7-3.8 LA Volume (4C A-L) 25 ml LA Volume (BP A-L) 29 ml RA Dimensions RA Area (4C) 11.8 cm2 <=18.0 EchoPAC Name Value Normal LIANA AA peak sys SL (AWMA) 18.0 % AAS peak sys SL (AWMA) 17.9 % AI peak sys SL (AWMA) 24.4 % AL peak sys SL (AWMA) 15.8 % AP peak sys SL (AWMA) 22.1 % peak sys SL (AWMA) 18.6 % AVC (AWMA) 378 ms BA peak sys SL (AWMA) 14.0 % BAS peak sys SL (AWMA) 13.2 % BI peak sys SL (AWMA) 14.7 % BL peak sys SL (AWMA) 13.9 % BP peak sys SL (AWMA) 15.9 % BS peak sys SL (AWMA) 7.1 % G peak SL(A2C) (AWMA) 17.2 % G peak SL(A4C) (AWMA) 13.9 % G peak SL(APLAX) (AWMA) 16.7 % G peak SL(Avg) (AWMA) 15.9 % MA peak sys SL (AWMA) 15.1 % MAS peak sys SL (AWMA) 18.2 % LA peak sys SL (AWMA) 21.4 % ML peak sys SL (AWMA) 13.2 % MP peak sys SL (AWMA) 18.2 % MS peak sys SL (AWMA) 14.2 % Report Signatures
--- NOTE | 2024-03-28 09:52 | EST_ITS ---
Patient Info Name: Ghada Espino Age: 68 years : 1955 Gender: Female Ht: 60 in Wt: 120 lbs BSA: 1.53 m2 Exam Date: 03/28/2024 11:10 AM Exam Location: Echo Lab Patient Status: Outpatient Admit Date: 03/28/2024 Staff Ordering Physician: Chuckie Tejeda DO Attending Provider: Chuckie Tejeda DO Exercise Technologist: Rosibel Field RDCS Exercise Physician: Chuckie Tejeda DO Exam Type: CA stress warren w NM Study Info Indications R07.9 - Chest pain, unspecified A regadenoson stress test was performed. Summary 1. 1. Negative lexiscan stress test for ischemic ST changes by ECG criteria. 2. 2. Baseline hypertension. 3. 3. Nuclear scan to follow and will be reported separately. Please correlate with it. 4. 4. Patient informed of the above results. Protocol: Lexiscan Stress ECG Details Stage: REST Duration (min): 9 min : 59 sec HR (bpm): 75 SBP (mmHg): 178 DBP (mmHg): 94 Stage: REST Duration (min): 21 min : 0 sec HR (bpm): 82 SBP (mmHg): 178 DBP (mmHg): 94 Stage: STAGE 1 Duration (min): 1 min : 0 sec HR (bpm): 87 SBP (mmHg): 178 DBP (mmHg): 94 Stage: RECOVERY Duration (min): 1 min : 0 sec HR (bpm): 104 SBP (mmHg): 178 DBP (mmHg): 94 Stage: RECOVERY Duration (min): 2 min : 0 sec HR (bpm): 98 SBP (mmHg): 169 DBP (mmHg): 104 Stage: RECOVERY Duration (min): 3 min : 0 sec HR (bpm): 96 SBP (mmHg): 182 DBP (mmHg): 102 Stage: RECOVERY Duration (min): 3 min : 4 sec HR (bpm): 97 SBP (mmHg): 182 DBP (mmHg): 102 Rest HR: 82 bpm Peak HR: 104 bpm Rest Sys BP: 178 mmHg Peak Sys BP: 182 mmHg Max Pred HR: 152 bpm % Max Pred HR: 68 % Target HR: 129 bpm Max RPP: 18,928 bpm*mmHg Termination Reason: Completed protocol Cardiac Symptoms: Shortness of breath Total Time: 1 min : 0 sec Rest Gonzalez BP: 94 mmHg Peak Gonzalez BP: 102 mmHg Total Dose: 0.4 mg Resting ECG Sinus rhythm, cannot r/o septal infarct, age indeterminate. Stress ECG No ST changes. Arrhythmias None. Report Signatures
== END 2024-03-28 09:48 | disposition home or self-care (01) ==
PROVIDERS: PCP Family Medicine; Visit Provider Internal Medicine Cardiovascular Disease
DX: R07.9 Chest pain, unspecified (principal)
CPT/HCPCS: 78452; 93017; 93306; A9502; J2785

== ENCOUNTER 2024-08-08 10:37 | Outpatient (CLI) | payer MEDICARE, SELFPAY ==
--- NOTE | ~2024-08-08 | XR_ITS ---
XR ribs RT 2V Ordering provider: Aubrey Villatoro MD History: . Z13.220 - Encounter for screening for lipoid disorders . Comparison: None. FINDINGS: BONES: No acute right rib fracture or fracture of the visualized osseous structures. LUNGS: No effusions or infiltrates. No pneumothorax. SOFT TISSUES: Normal. Multilevel degenerative disc disease in the thoracic spine. IMPRESSION: No right rib fracture or other abnormality. Reviewed, dictated and finalized at location A.
[2024-08-08 11:13] LABS: Hematocrit 40.3 % (37.0-47.0); Hemoglobin 13.2 g/dL (12.0-15.0); Mean Corpuscular HGB Conc 32.8 g/dl (32-36); Mean Corpuscular Hemoglobin 30.9 pg (26-34); Mean Corpuscular Volume 94.4 fl (80-100); Mean Platelet Volume 10.1 fl (7.4-10.4); Platelet Count Result 334 k/mm3 (150-375); Red Blood Count 4.27 M/mm3 (4.2-5.4); Red Cell Distribution Width 12.7 % (11.5-14.5); White Blood Count 9.1 K/mm3 (4.5-10.0)
[2024-08-08 11:21] LABS: Add Urine Microscopic? YES; Appearance Urine Clear (Clear); Bacteria Urine None Seen /hpf; Bilirubin Urine Negative (Negative); Blood Urine 2+ (Negative); Color Urine Yellow (Yellow); Glucose Urine UA Negative (Negative); Ketones Urine Trace mg/dL (Negative); Leukocyte Esterase Ur Negative LEU/UL (Negative); Nitrate Urine Negative (Negative); Non Pathogenic Casts 0-2; Protein Urine Trace mg/dL (Negative); Specific Grav Ur 1.018 (1.001-1.035); Squamous Epithelial Cell Urine Few /hpf (Few); Urobilinogen Urine 0.2 mg/dL (<2.0); WBC Urine 0-5 /hpf (0-3); pH Urine 5.5 (5.0-9.0)
[2024-08-08 11:34] LABS: Iron 84 ug/dL (37-170)
[2024-08-08 11:44] LABS: Percent Iron Saturation 33 % (20-50)
--- OUTSIDE RECORDS SUMMARY | 2024-08-08 12:05 | XMS_ITS | Referral Summary ---
Author Organization [facility] Address [address] [place] [address] Care Team Providers Care Education And Training Coordinator Name Role Phone Jesus Hurtado MD Primary Care Provider Unavail able Source Comments [facility],non-owned Affiliates and Associated Physician Practices is amultiple site organization consisting of ambulatory clinics and hospital sitesin [place], [place], [place] and [place]. This disclosure is being madepursuant to the Care Everywhere program and may not contain all information available regarding this patient. Last updated 18.[facility] Allergies Active Allergy Reactions Criticality Noted Date Comments Povidone Iodine 03/26/2011 Social History Tobacco Use Types Packs/Day Years Used Date Smoking Tobacco: Every Day Cigarettes Alcohol Use Standard Drinks/Week Comments Yes 6.7 (1 standard drink = 0.6 oz p ure alcohol) Sex and Gender Information Value Date Recorded Sex Assigned at Not on file Gender Identity Not on file Sexual Orientation Not on file Plan of Treatment Not on file Care Teams Education And Training Coordinator Relationship Specialty Start Date End Date Jesus Hurtado MD PCP - General 01/20/11
--- OUTSIDE RECORDS SUMMARY | 2024-08-08 12:05 | XMS_ITS | Patient Health Summary ---
Author Organization [facility] Address [address] [place] [address] Care Team Providers Care Supervisor Respiratory Name Role Phone eJsus Hurtado MD Primary Care Provider Unavail able Note from [facility],non-owned Affiliates and Associated Physician Practices is amultiple site organization consisting of ambulatory clinics and hospital sitesin [place], [place], [place] and [place]. This disclosure is being madepursuant to the Care Everywhere program and may not contain all information available regarding this patient. Last updated 18.[facility] [employer] Allergies * Povidone Iodine Social History Tobacco Use Types Packs/Day Years Used Date Smoking Tobacco: Every Day Cigarettes Alcohol Use Standard Drinks/Week Comments Yes 6.7 (1 standard drink = 0.6 oz p ure alcohol) Sex and Gender Information Value Date Recorded Sex Assigned at Not on file Gender Identity Not on file Sexual Orientation Not on file Procedures * GROSS + MICRO EXAM(Performed 07/22/2008) * LAB HISTORICAL RESULTS-ONBASE(Performed 08/08/2007) Results * GROSS + MICRO EXAM (07/22/2008 2:30 PM ASP WEB DEVELOPER) Result CASE NUMBER [id number] Comment: ORDERING PHYSICIAN DELGADO SANTIAGO SPECIMEN TYPE Disc-C4-C7 Date of Surgery 07/22/2008 0839 Surgeon DELGADO SANTIAGO M.D. SPECIMEN SOURCE Disc material C6-C7. *Pre Op Dx HNP C6-C7. GROSS DESCRIPTION Received without fixative labeled disc material C4-C7 is a specimen consisting of about 4 cc of [place] to white reddish brown fibrocartilage tissue fragments up to about 1.5 cm across. Buyer Renter portions are submitted for decalcification. Grossed by BRUNO ROA M.D. *MICROSCOPIC EXAM Sections of the disc material show multiple fragments of benign fibrocartilage. Occasional small bony fragments are also present. Read by Asif Luther, D.O. DIAGNOSIS DISC MATERIAL C6-C7 - BENIGN FIBROCARTILAGE AND BONE FRAGMENTS FROM DISC PROCEDURE. RELEASED BY BRUNO ROA MD MISCELLANEOUS SAMPLES / Unknown 07/22/2008 2:30 PM ASP WEB DEVELOPER 07/22/2008 4:00 PM ASP WEB DEVELOPER Historical Provider LAB - PATHOLOGY/C YTOLOGY ORDERABLES * LAB HISTORICAL RESULTS-ONBASE (08/08/2007) 08/08/2007 Historical Provider LAB - CHEMISTRY O RDERABLES [facility] Care Teams Supervisor Respiratory Relationship Specialty Start Date End Date Jesus Hurtado MD PCP - General 01/20/11
--- OUTSIDE RECORDS SUMMARY | 2024-08-08 12:05 | XMS_ITS | Clinical Summary ---
Author Organization [facility] Address [address] [place] [address] Care Team Providers Care Family Specialist Name Role Phone Jesus Hurtado MD Primary Care Provider Unavail able Source Comments [facility],non-owned Affiliates and Associated Physician Practices is amultiple site organization consisting of ambulatory clinics and hospital sitesin [place], [place], [place] and [place]. This disclosure is being madepursuant to the Care Everywhere program and may not contain all information available regarding this patient. Last updated 18.[facility] Allergies Active Allergy Reactions Criticality Noted Date Comments Povidone Iodine 03/26/2011 Family History Medical History Relation Name Comments Cancer - Colon Mother Hypertension Mother Relation Name Status Comments Mother Social History Tobacco Use Types Packs/Day Years Used Date Smoking Tobacco: Every Day Cigarettes Alcohol Use Standard Drinks/Week Comments Yes 6.7 (1 standard drink = 0.6 oz p ure alcohol) Sex and Gender Information Value Date Recorded Sex Assigned at Not on file Gender Identity Not on file Sexual Orientation Not on file Plan of Treatment Health Maintenance Due Date Last Done Comments BONE DENSITY TESTING 1955 COLOGUARD (AGES 45-75) - COL ON CA SCREENING 1955 COLON MONITORING 1955 COLONOSCOPY - COLON CA SCREENING 1955 CT COLONOGRAPHY - COLON CA SCREENING 1955 Colorectal Cancer Screening 1955 FIT - COLON CA SCREENING 1955 FLEX SIG - COLON CA SCREENING 1955 LIPID TESTING 1955 MAMMOGRAM 1955 HEPATITIS C SCREENING 05/21/1973 DTAP/TDAP/TD VACCINES (1 - Tdap) 1974 PNEUMOCOCCAL VACCINE 50+ (1 of 1 - PCV) 2005 ZOSTER VACCINE (1 of 2) 2005 COVID-19 VACCINE ( - 2023-2 5 season) 2024 INFLUENZA VACCINE (#1) 2024 DEPRESSION SCREENING 05/30/2024 Respiratory Syncytial Virus (RSV) Vaccine Pt: or over 60 yrs (1 - 1-dose 75+ series) 2030 HEPATITIS B VACCINE Aged Out No longe r eligible based on patient's age to complete this topic HIB VACCINE Aged Out No longer eligi ble based on patient's age to complete this topic HPV VACCINE Aged Out No longer eligi ble based on patient's age to complete this topic MENINGOCOCCAL (Group B) VACC INE SHARED DECISION-MAKING Aged Out No longer eligibl e based on patient's age to complete this topic MENINGOCOCCAL GROUPS A/C/Y/W VACCINE Aged Out No longer eligible b ased on patient's age to complete this topic Care Teams Family Specialist Relationship Specialty Start Date End Date Jesus Hurtado MD PCP - General 01/20/11
--- OUTSIDE RECORDS SUMMARY | 2024-08-08 12:06 | XMS_ITS | Clinical Summary ---
Author Organization [facility] Address [address] [place] [address] Care Team Providers Care Mill Turner Name Role Phone Chuy Webber DO Unavailable [phone] Aubrey Villatoro MD Primary Care Provider [phone] Allergies Active Allergy Reactions Criticality Noted Date Comments Other Unknown 09/14/2012 Povidone-Iodine Unknown Medications ALPRAZolam (XANAX) 0.25 mg tablet TK 1/2 T PO BID PRF ANXIETY 4 04/09/20 18 Active amLODIPine (NORVASC) 10 mg tablet TK 1/2 T PO BID 2 04/21/20 18 Active fluticasone (FLONASE) 50 mcg/actuation nasal spray SHAKE LQ AND U 1 TO 2 SPRAYS IEN QD PRN 11 04/21/20 18 Active lisinopril (PRINIVIL,ZESTR IL) 20 mg tablet TK 1 T PO BID 0 04/24/20 18 Active oxyCODONE (ROXICODONE) 10 mg tabletIndicatio ns:Pain TK 1 T PO QID PRF PAIN 0 04/09/20 18 Active PARoxetine (PAXIL) 40 mg tablet Active QUEtiapine (SEROquel) 25 mg tablet TK 1 T PO HS 1 05/15/20 19 Active olopatadine (PATADAY) 0.2 % ophthalmic solution olopatadine 0.2 % eye drops Active nitrofurantoin monohydrate (MACROBID) 100 mg capsule nitrofurantoin monohydrate/macroc rystals 100 mg capsule Active SUMAtriptan (IMITREX) 25 mg tablet sumatriptan 25 mg tablet Active tretinoin (RETIN-A) 0.05 % cream KARTHIK EXT AA 1 TIME HS 10/15/19 20 Active triamcinolone (Kenalog) 10 mg/mL injection Kenalog 10 mg/mL suspension for injection In office injection administered by the provider Active diazePAM (VALIUM) 5 mg tablet Take by mouth 2 (two) times a day as needed 09/13/19 23 Active nystatin 100,000 unit/mL suspension SWISH & SWALLOW 5 ML BY MOUTH 4 TIMES DAILY FOR 7 DAYS 03/10/20 23 Active HYDROcodone-sirisha taminophen (NORCO) 10-325 mg per tablet Take by mouth every 6 (six) hours as needed 05/18/20 23 Active clotrimazole 1 % cream Apply topically 2 (two) times a day 30 g 12/22/19 24 Active Active Problems Problem Noted Date Diagnosed Date History of breast cancer 11/02/2018 Malignant neoplasm of breast (female) 10/19/2017 Chronic kidney disease, stage 3 (moderate) 06/12 Other and unspecified hyperlipidemia 06/12/2014 Overview (11/27/2019): Converted unresolved ICD9, potential mismatch. Essential (primary) hypertension 11/24/2011 Hematuria 11/24/2011 Stiffness of joint 11/24/2011 Immunizations Immunization Administration Dates Next Due Flucelvax Influenza Quad 02/27/2019 Surgical History Surgery Date Site/Laterality Comments COLONOSCOPY BREAST LUMPECTOMY BREAST BIOPSY Medical History Medical History Date Comments Breast cancer (HCC) Family History Medical History Relation Name Comments Colon cancer Mother Adenocarcinoma of colon - (Added by TW Conv) Lung cancer Mother Family history of lung cancer - (Added by TW Conv) Relation Name Status Comments Mother Social History Tobacco Use Types Packs/Day Years Used Date Smoking Tobacco: Every Day Cigarettes 1 40 Smokeless Tobacco: Never Tobacco Cessation:Ready to Q uit: Not Asked; Counseling Given: Not Answered Alcohol Use Standard Drinks/Week Comments Yes 0 (1 standard drink = 0.6 oz pur e alcohol) occasionally Personal Safety Answer Date Recorded Have you ever been in or are you currently in a harmful physical or emotional relationship or is someone making you feel afraid or unsafe? 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 Gender Identity Not on file Sexual Orientation Not on file Obstetrics History Last Filed Vital Signs Vital Sign Reading Time Taken Comments Blood Pressure 121/80 12/22/2023 2:06 PM CDT Pulse 95 12/22/2023 2:06 PM CDT Temperature 36.8 C (98.3 F) 12/22/2023 2:06 PM CDT Respiratory Rate 18 12/22/2023 2:06 PM CDT Oxygen Saturation 98% 12/22/2023 2:06 PM CDT Inhaled Oxygen Concentration - - Weight 54 kg (119 lb) 12/22/2023 2:06 PM CDT Height 153.7 cm (5' 0.51 ) 12/22/2023 2:06 PM CD T Body Mass Index 22.85 12/22/2023 2:06 PM CDT Plan of Treatment Health Maintenance Due Date Last Done Comments Colon Cancer Screening-Colonoscopy 1955 Depression Screening 1955 Fall Risk Assessment 1955 Hepatitis C Screening 1955 Osteoporosis Screening-Bone Density Scan 1955 DTaP/Tdap/Td Vaccine (1 - Tdap) 1966 Hepatitis B Screening 1973 Pneumococcal vaccine 65+ (1 of 2 - PCV) 1974 Lung Cancer Screening 2005 Zoster Vaccine (1 of 2) 2005 Breast Cancer Screening-Mammogram 11/03/2019 11/02/2018, 10/13/2017, 09/16/2016, Additional history exists Well Visit 65+ 2020 Influenza Vaccine (#1) 2024 02/27/2019 Procedures Procedure Name Priority Date/Time Associated Diagnosis Comments SCREENING MAMMOGRAM BILATERAL W STIVEN Schedule Routine, Read Routine (OP Routine) 11/02/2018 12:17 PM CDT Encounter for screening for malignant neoplasm of breast from Last 3 Months or Most Recently Relevant to Health Maintenance Results * Screening Mammogram Bilateral W Stiven (11/02/2018 12:17 PM CDT) Anatomical Region Laterality Modality Breast Bilateral Mammography Narrative 11/03/2018 10:01 AM CDT Mammogram Technique: Bilateral Digital Breast Tomosynthesis, Bilateral C-view 2D Screening mammogram. Views obtained: bilateral craniocaudal and bilateral mediolateral oblique. Computer Aided Detection was performed. Mammogram Findings: The present examination has been compared to prior imaging studies performed at [facility] on 09/16/2016 and 10/13/2017. There are scattered areas of fibroglandular density. There is no suspicious abnormality in either breast. Findings compatible with prior left breast conservation therapy are noted. Impression: Annual screening mammography is recommended. OVERALL FINAL ASSESSMENT: BI-RADS CATEGORY 1: Negative. Procedure Note Ghada Newby MD - 11/03/2018 Mammogram Technique: Bilateral Digital Breast Tomosynthesis, Bilateral C-view 2D Screening mammogram. Views obtained: bilateral craniocaudal and bilateral mediolateral oblique. Computer Aided Detection was performed. Mammogram Findings: The present examination has been compared to prior imaging studies performed at [facility] on 09/16/2016 and 10/13/2017. There are scattered areas of fibroglandular density. There is no suspicious abnormality in either breast. Findings compatible with prior left breast conservation therapy arenoted. Impression: Annual screening mammography is recommended. OVERALL FINAL ASSESSMENT: BI-RADS CATEGORY 1: Negative. Love Landeros TRANSITIONAL KINDERGARTEN TEACHER IMG MAMMO PROCEDURES Final R esult from Last 3 Months or Most Recently Relevant to Health Maintenance Insurance [facility] MDCR HMO REF [facility] MEDICARE Address: [facility] [address] [place] [address] MEDICARE SOLUTIONS MEDICARE SOLUTIONS Care Teams Mill Turner Relationship Specialty Start Date End Date Aubrey Villatoro MD [address] [place] [id number] PCP - General Family Practice 12/22/23 Chuy Webber DO [address] [place] [address] Medical Oncologist/Senior Mechanical Estimator Hematology and Oncology 04/26/18
--- OUTSIDE RECORDS SUMMARY | 2024-08-08 12:06 | XMS_ITS | Referral Summary ---
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 There are scattered [...] compared to prior imaging studies performed at [facility] on 09/16/2016 and 10/13/2017. There are scattered areas of fibroglandular density. There is no suspicious abnormality in either breast. Findings compatible with prior left breast conservation therapy arenoted. Impression: Annual screening mammography is recommended. OVERALL FINAL ASSESSMENT: BI-RADS CATEGORY 1: Negative. Love Landeros GROUNDMAN/LINEMAN IMG MAMMO PROCEDURES Final R esult from Last 3 Months or Most Recently Relevant to Health Maintenance Insurance MDCR HMO REF Member Subscriber Plan / Payer (Ef fective 2019-Present) Name:Ghada Espino Relation to Subscriber:Self Name:Ghada Espino Payer ID:[id number] (NAIC) Type:[facility] MEDICARE Address: [place] [phone] MEDICARE SOLUTIONS MEDICARE SOLUTIONS Care Teams Dust Mill Operator Relationship Specialty Start Date End Date Aubrey Villatoro MD [address] [place] [id number] PCP - General Family Practice 12/22/23 Chuy Webber DO [address] [place] [id number] Medical Oncologist/Mac Operator Hematology and Oncology 04/26/18
--- OUTSIDE RECORDS SUMMARY | 2024-08-08 12:06 | XMS_ITS | Clinical Summary ---
Author Organization [facility] Address [address] [place] [address] Care Team Providers Care Heel Scourer Name Role Phone Unavailable Primary Care Provider Unavailabl e Social History Tobacco Use Types Packs/Day Years Used Date Smoking Tobacco: Never Assessed Comments Unknown Sex and Gender Information Value Date Recorded Sex Assigned at Not on file Legal Sex Female 8:28 PM CDT Gender Identity Not on file Sexual Orientation Not on file Plan of Treatment Health Maintenance Due Date Last Done Comments Colorectal Cancer Screening Colonoscopy (10 Years) 1955 Hepatitis C 1973 DTaP, Tdap and Td Vaccines ( 1 - Tdap) 1974 Mammogram Screening 1995 Zoster Vaccines (1 of 2) 2005 Dexa Scan (General) 2020 Pneumococcal Vaccine: 65+ Ye ars (1 of 1 - PCV) 2020 COVID-19 Vaccine ( - 2023-2 5 season) 2024 Influenza Adult (#1) 2024 RSV Immunization or 60+ Years (1 - 1-dose 75+ series) 2030 Meningococcal B Vaccine Aged Out No l onger eligible based on patient's age to complete this topic Meningococcal Vaccine Aged Out No tre sonido eligible based on patient's age to complete this topic RSV Immunizations Under 20 Months Aged Out No longer eligible based on patient's age to complete this topic
[2024-08-08 12:56] LABS: Vitamin D 25 Hydroxy 28.1 ng/mL
[2024-08-08 15:42] LABS: Alanine Aminotransferase 12 U/L (6-35); Albumin Level 4.4 g/dL (3.5-5.1); Alkaline Phosphatase 95 U/L (38-126); Anion Gap 9 mmol/L (4-12); Aspartate Amino Transferase 25 U/L (14-36); Bilirubin,Total 0.4 mg/dL (0.2-1.3); Blood Urea Nitrogen 7 mg/dL (7-17); Calcium 9.5 mg/dL (8.4-10.2); Carbon Dioxide 24 mmol/L (22-30); Chloride 108 mmol/L (98-107); Estimated Glomerular Filt Rate 53; Glucose 90 mg/dL (65-110); Potassium 3.9 mmol/L (3.4-5.0); Sodium 141 mmol/L (137-145)
== END 2024-08-08 10:38 | disposition home or self-care (01) ==
PROVIDERS: PCP Family Medicine; Visit Provider Family Medicine
DX: T78.40XA Allergy, unspecified, initial encounter (principal); F31.9 Bipolar disorder, unspecified; I10 Essential (primary) hypertension; I25.10 Atherosclerotic heart disease of native coronary artery without angina pectoris; E55.9 Vitamin D deficiency, unspecified; K21.9 Gastro-esophageal reflux disease without esophagitis; R55 Syncope and collapse; Z72.0 Tobacco use; R53.83 Other fatigue; Z79.899 Other long term (current) drug therapy; N39.0 Urinary tract infection, site not specified; G47.10 Hypersomnia, unspecified; Z13.220 Encounter for screening for lipoid disorders; R07.81 Pleurodynia
CPT/HCPCS: 36415; 71100; 80053; 81001; 82306; 82607; 82728; 83540; 83550; 85027; 87086

== ENCOUNTER 2024-08-14 11:41 | Outpatient (CLI) | payer MEDICARE, SELFPAY ==
--- NOTE | ~2024-08-14 | XR_ITS ---
Supine and upright views of the abdomen Clinical history: Right-sided pain Findings: Bowel gas pattern is nonspecific. No evidence for obstruction or free air. No abnormal mass lesion or calcification is seen. Osseous structures are intact. Cholecystectomy clips noted. Impression: No significant abnormality is seen. Reviewed, dictated and finalized at [facility]. Impression: No significant abnormality is seen.
--- OUTSIDE RECORDS SUMMARY | 2024-08-14 13:21 | XMS_ITS | Clinical Summary ---
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 on 09/16/2016 and 10/13/2017. There are scattered [...] compared to prior imaging studies performed at [facility] on 09/16/2016 and 10/13/2017. There are scattered areas of fibroglandular density. There is no suspicious abnormality in either breast. Findings compatible with prior left breast conservation therapy arenoted. Impression: Annual screening mammography is recommended. OVERALL FINAL ASSESSMENT: BI-RADS CATEGORY 1: Negative. Love Landeros MEDICAL CASE WORKER IMG MAMMO PROCEDURES Final R esult from Last 3 Months or Most Recently Relevant to Health Maintenance Insurance [facility] MDCR HMO REF [facility] MEDICARE Address: [facility] [address] [place] [address] MEDICARE SOLUTIONS MEDICARE SOLUTIONS Care Teams Senior Merchandiser Relationship Specialty Start Date End Date Aubrey Villatoro MD [address] [place] [phone] PCP - General Family Practice 12/22/23 Chuy Webber DO [address] [place] [address] Medical Oncologist/Contract Clerk Hematology and Oncology 04/26/18
--- OUTSIDE RECORDS SUMMARY | 2024-08-14 13:21 | XMS_ITS | Clinical Summary ---
Author Organization [facility] Address [address] [place] [address] Care Team Providers Care District Manager Major Accounts Sales Name Role Phone Unavailable Primary Care Provider [...]
--- OUTSIDE RECORDS SUMMARY | 2024-08-14 13:21 | XMS_ITS | Clinical Summary ---
Author Organization [facility] Address [address] [place] [address] Care Team Providers Care Seismology Technical Officer Name Role Phone Jesus Hurtado MD Primary Care Provider Unavail able Source Comments [facility],non-owned Affiliates and Associated Physician Practices is amultiple site organization consisting of ambulatory clinics and hospital sitesin [place], [place], [place] and [place]. This disclosure is being madepursuant to the Care Everywhere program and may not contain all information available regarding this patient. Last updated 18.[facility] Allergies Active Allergy Reactions Criticality Noted Date [...] age to complete this topic Care Teams Seismology Technical Officer Relationship Specialty Start Date End Date Jesus Hurtado MD PCP - General 01/20/11
--- OUTSIDE RECORDS SUMMARY | 2024-08-14 13:21 | XMS_ITS | Referral Summary ---
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 There are [...] compared to prior imaging studies performed at [facility] on 09/16/2016 and 10/13/2017. There are scattered areas of fibroglandular density. There is no suspicious abnormality in either breast. Findings compatible with prior left breast conservation therapy arenoted. Impression: Annual screening mammography is recommended. OVERALL FINAL ASSESSMENT: BI-RADS CATEGORY 1: Negative. Love Landeros UNDERCOLLAR MAKER IMG MAMMO PROCEDURES Final R esult from Last 3 Months or Most Recently Relevant to Health Maintenance Insurance MDCR HMO REF Member Subscriber Plan / Payer (Ef fective 2019-Present) Name:Ghada Espino Relation to Subscriber:Self Name:Ghada Espino Payer ID:[id number] (NAIC) Type:[facility] MEDICARE Address: [place] [phone] MEDICARE SOLUTIONS MEDICARE SOLUTIONS Care Teams Electrician Apprentice Relationship Specialty Start Date End Date Aubrey Villatoro MD [address] [place] [address] PCP - General Family Practice 12/22/23 Chuy Webber DO [address] [place] [id number] Medical Oncologist/Silo Worker Hematology and Oncology 04/26/18
== END 2024-08-14 11:42 | disposition home or self-care (01) ==
PROVIDERS: PCP Family Medicine; Visit Provider Family Medicine
DX: R31.9 Hematuria, unspecified (principal)
CPT/HCPCS: 74018

== ENCOUNTER 2024-08-17 14:50 | Outpatient (CLI) | payer MEDICARE, SELFPAY ==
--- NOTE | ~2024-08-17 | CT_ITS ---
Non-contrast CT scan of the Abdomen and Pelvis Clinical indication: Abdominal pain Technique: 2.5 mm axial scans were obtained through the abdomen and pelvis without intravenous or or al contrast. Dose reduction technique was used on this scan by utilizing automated exposure control a nd iterative reconstruction technique. The dose-length product (DLP) was 174.76 mGy-cm. COMPARISON: 01/27/2024 Findings: Images through the lung bases reveal no abnormalities. There is no evidence of renal or ureteral calculi. The kidneys and the ureters are nondilated. The liver, spleen, pancreas, and adrenals appear normal. Cholecystectomy clips are present. There are atherosclerotic calcifications of the aorta. . There is no evidence of bowel obstruction. Images through the pelvis were performed. There is no evidence of ascites or lymphadenopathy. Urinary bladder unremarkable. No pelvic mass seen. Impression: No acute abnormality. Reviewed, dictated and finalized at [facility]. Impression: No acute abnormality.
--- OUTSIDE RECORDS SUMMARY | 2024-08-17 15:01 | XMS_ITS | Referral Summary ---
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 There are scattered [...] to prior imaging studies performed at [facility] on 09/16/2016 and 10/13/2017. There are scattered areas of fibroglandular density. There is no suspicious abnormality in either breast. Findings compatible with prior left breast conservation therapy arenoted. Impression: Annual screening mammography is recommended. OVERALL FINAL ASSESSMENT: BI-RADS CATEGORY 1: Negative. Love Landeros FIRE LOSS PREVENTION ENGINEER IMG MAMMO PROCEDURES Final R esult from Last 3 Months or Most Recently Relevant to Health Maintenance Insurance MDCR HMO REF Member Subscriber Plan / Payer (Ef fective 2019-Present) Name:Ghada Espino Relation to Subscriber:Self Name:Ghada Espino Payer ID:[id number] (NAIC) Type:[facility] MEDICARE Address: [place] [phone] UHC MEDICARE ADVANTAGE MEDICARE ADVANTAGE Care Teams Analytical Statistician Relationship Specialty Start Date End Date Aubrey Villatoro MD [address] [place] [id number] PCP - General Family Practice 12/22/23 Chuy Webber DO [address] [place] [address] [id number] Medical Oncologist/Pediatric Neurologist Hematology and Oncology 04/26/18
--- OUTSIDE RECORDS SUMMARY | 2024-08-17 15:01 | XMS_ITS | Clinical Summary ---
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 There are scattered [...] compared to prior imaging studies performed at [facility] on 09/16/2016 and 10/13/2017. There are scattered areas of fibroglandular density. There is no suspicious abnormality in either breast. Findings compatible with prior left breast conservation therapy arenoted. Impression: Annual screening mammography is recommended. OVERALL FINAL ASSESSMENT: BI-RADS CATEGORY 1: Negative. Love Landeros INCOME TAX MANAGER IMG MAMMO PROCEDURES Final R esult from Last 3 Months or Most Recently Relevant to Health Maintenance Insurance [facility] MDCR HMO REF [facility] MEDICARE ADVANTAGE MEDICARE ADVANTAGE Member Subscriber Plan / Payer (Ef fective 2022-Present) Name:Ghada Espino Relation to Subscriber:Self Name:Ghada Espino Payer ID:[id number] (NAIC) Type:[facility] MEDICARE Address: [place] [phone] Care Teams Case Picker Relationship Specialty Start Date End Date Aubrey Villatoro MD [address] [place] [id number] PCP - General Family Practice 12/22/23 Chuy Webber DO [address] [place] [id number] Medical Oncologist/Diffusion Operator Hematology and Oncology 04/26/18
--- OUTSIDE RECORDS SUMMARY | 2024-08-17 15:01 | XMS_ITS | Clinical Summary ---
Author Organization [facility] Address [address] [place] [address] Care Team Providers Care Cloth Folder Hand Name Role Phone Unavailable Primary Care Provider [...]
--- OUTSIDE RECORDS SUMMARY | 2024-08-17 15:01 | XMS_ITS | Clinical Summary ---
Author Organization [facility] Address [address] [place] [address] Care Team Providers Care Clinical Biochemist Name Role Phone Jesus Hurtado MD Primary Care Provider Unavail able Source Comments [facility],non-owned Affiliates and Associated Physician Practices is amultiple site organization consisting of ambulatory clinics and hospital sitesin [place], [place] and [place]. This disclosure is being madepursuant to the Care Everywhere program and may not contain all information available regarding this patient. Last updated 18.[facility] Allergies Active Allergy Reactions Criticality Noted Date [...] age to complete this topic Care Teams Clinical Biochemist Relationship Specialty Start Date End Date Jesus Hurtado MD PCP - General 01/20/11
== END 2024-08-17 14:51 | disposition home or self-care (01) ==
PROVIDERS: PCP Family Medicine; Visit Provider Family Medicine
DX: R10.9 Unspecified abdominal pain (principal); R31.29 Other microscopic hematuria
CPT/HCPCS: 74176

== ENCOUNTER 2024-10-09 16:00 | Outpatient (CLI) | payer MEDICARE, SELFPAY ==
--- NOTE | ~2024-10-09 | XR_ITS ---
Cervical Spine: AP, lateral, open-mouth views Clinical History: Pain Findings: The normal lordotic curve is maintained. There is anterior fusion from C4 through C7. There is severe facet arthropathy from C2 through C4. There is moderate facet arthropathy in the remainder of the cervical spine. No fracture or subluxation evident. Pre-vertebral soft tissues are unremarkab le. Impression: Anterior fusion from C4 to C7. Extensive facet arthropathy, as detailed above. Reviewed, dictated and finalized at location M. Impression: Anterior fusion from C4 to C7. Extensive facet arthropathy, as detailed above.
--- NOTE | ~2024-10-09 | XR_ITS ---
Thoracic spine: Clinical Indication: Radiculopathy AP and lateral views were performed. Probable minimal chronic wedging deformities of T11 and T12. There is multilevel mild to moderate deg enerative disc change in the thoracic spine. Paravertebral soft tissues appear normal. Impression: Multilevel mild to moderate degenerative change of the thoracic spine. Minimal chronic wedging deformities of T11 and T12. Reviewed, dictated and finalized at location . Impression: Multilevel mild to moderate degenerative change of the thoracic spine. Minimal chronic wedging deformities of T11 and T12.
--- NOTE | ~2024-10-09 | XR_ITS ---
Lumbosacral Spine: AP and lateral views Clinical History: Pain Findings: The normal lordotic curve is maintained. No fracture present. There is grade 1 anterolisthe sis of L4 over L5. There is advanced facet arthropathy from L4 through S1. There is moderate facet ar thropathy and the upper lumbar spine. The sacroiliac joints are normally outlined. Impression: Grade 1 anterolisthesis of L4 over L5. Extensive facet arthropathy, worst from L4 through S1, as detailed above. Reviewed, dictated and finalized at location M. Impression: Grade 1 anterolisthesis of L4 over L5. Extensive facet arthropathy, worst from L4 through S1, as detailed above.
== END 2024-10-09 16:01 | disposition home or self-care (01) ==
LOC: MICIMG 16:04
PROVIDERS: PCP Pain Medicine Interventional Pain Medicine; Visit Provider Pain Medicine Interventional Pain Medicine
DX: F44.1 Dissociative fugue (principal); F33.1 Major depressive disorder, recurrent, moderate; M47.22 Other spondylosis with radiculopathy, cervical region; M51.24 Other intervertebral disc displacement, thoracic region; Z98.1 Arthrodesis status
CPT/HCPCS: 72040; 72070; 72100

== ENCOUNTER 2025-03-19 11:29 | Outpatient (CLI) | payer MEDICARE, SELFPAY ==
[2025-03-19 12:14] LABS: Add Urine Microscopic? YES; Appearance Urine Clear (Clear); Glucose Urine UA Negative (Negative); Leukocyte Esterase Ur Negative LEU/UL (Negative); Need Manual Microscopic Reviewed; Nitrate Urine Negative (Negative); Non Pathogenic Casts 0-2; Specific Grav Ur 1.006 (1.001-1.035)
[2025-03-19 12:22] LABS: Cholesterol 213 mg/dL (0-200); HDL Direct 69 mg/dL; Triglycerides 132 mg/dL (<150)
[2025-03-19 12:59] LABS: Thyroid Stimulating Hormone 1.760 uIU/mL (0.465-4.680)
--- OUTSIDE RECORDS SUMMARY | 2025-03-19 14:24 | XMS_ITS | Clinical Summary ---
Author Organization [facility] Address [address] [place] [id number] Care Team Providers Care Banding Machine Operator Name Role Phone Unavailable Primary Care Provider [...] 1 - Tdap) 1974 Mammogram Screening 1995 Pneumococcal Vaccine: 50+ Ye ars (1 of 1 - PCV) 2005 Zoster Vaccines (1 of 2) 2005 Dexa Scan (General) 2020 COVID-19 Vaccine (1 - 2023-2 5 season) 2025 Influenza Adult (#1) 2025 RSV Immunization or 60+ Years (1 - 1-dose 75+ series) 2030 Hepatitis A Vaccines Aged Out No long er eligible based on patient's age to complete this topic Meningococcal B Vaccine Aged Out No l onger eligible based on patient's age to complete this topic Meningococcal Vaccine Aged Out No tre sonido eligible based on patient's age to complete this topic RSV Immunizations Under 20 Months Aged Out No longer eligible based on patient's age to complete this topic
--- OUTSIDE RECORDS SUMMARY | 2025-03-19 14:24 | XMS_ITS | Clinical Summary ---
Author Organization [facility] Address [address] [place] [address] Care Team Providers Care Filling Machine Operator Name Role Phone Chuy Webber DO Unavailable [phone] Aubrey Villatoro MD Primary Care Provider [phone] Allergies Active Allergy Reactions Criticality Noted Date [...] 11/24/2011 Hematuria 11/24/2011 Stiffness of joint 11/24/2011 Encounters Date Type Department Care Team Description 02/14/2025 1:20 PM CDT Lab [address] [address] Urinary tract infection, site not specified (Primary Dx); Essential hypertension, malignant; Hyperlipemia; Avitaminosis D; Anxiety disorder of childhood or adolescence; Major depressive disorder, single episode, unspecified; Chronic kidney disease, stage III (moderate) (HCC); Chronic idiopathic anal pain; Fatigue; Phantom pain; Tobacco use disorder from Last 3 Months Immunizations Immunization Administration Dates Next Due Flucelvax [...] on file 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 Gender Identity Not on file Sexual Orientation [...] 2:06 PM CDT Height 153.7 cm (5' 0.51) 12/22/2023 2:06 PM CD T Body Mass Index 22.85 12/22/2023 2:06 PM CDT Plan of Treatment Health Maintenance Due Date Last Done Comments Colon Cancer Screening-Colonoscopy 1955 Depression Screening 1955 Fall Risk Assessment 1955 Hepatitis C Screening 1955 Osteoporosis Screening-Bone Density Scan 1955 DTaP/Tdap/Td Vaccine (1 - Tdap) 1966 Pneumococcal vaccine 65+ (3 of 3 - PCV20 or PCV21) 09/28/2017 09/28/2012, 12/04/2010 Breast Cancer Screening-Mammogram 11/03/2019 11/02/2018, 10/13/2017, 09/16/2016, Additional history exists Well Visit 65+ 2020 Influenza Vaccine (#1) 2025 9, 02/28/2018, 06/11/2014, Additional history exists Zoster Vaccine Completed 08/08/2024, 02/16/2023 Procedures Procedure Name Priority Date/Time Associated Diagnosis Comments EGFR Routine 02/14/2025 1:41 PM CDT Urinary tract infection, site not specified Essential hypertension, malignant Hyperlipemia Avitaminosis D Anxiety disorder of childhood or adolescence Major depressive disorder, single episode, unspecified Chronic kidney disease, stage III (moderate) (HCC) Chronic idiopathic anal pain Fatigue Phantom pain Tobacco use disorder URINALYSIS, MICROSCOPIC ONLY Routine 02/14/2025 1:41 PM CDT Urinary tract infection, site not specified Essential hypertension, malignant Hyperlipemia Avitaminosis D Anxiety disorder of childhood or adolescence Major depressive disorder, single episode, unspecified Chronic kidney disease, stage III (moderate) (HCC) Chronic idiopathic anal pain Fatigue Phantom pain Tobacco use disorder DIFFERENTIAL AUTO Routine 02/14/2025 1:4 1 PM CDT Urinary tract infection, site not specified Essential hypertension, malignant Hyperlipemia Avitaminosis D Anxiety disorder of childhood or adolescence Major depressive disorder, single episode, unspecified Chronic kidney disease, stage III (moderate) (HCC) Chronic idiopathic anal pain Fatigue Phantom pain Tobacco use disorder APOLIPOPROTEIN B Routine 02/14/2025 1:41 PM CDT Urinary tract infection, site not specified Essential hypertension, malignant Hyperlipemia Avitaminosis D Anxiety disorder of childhood or adolescence Major depressive disorder, single episode, unspecified Chronic kidney disease, stage III (moderate) (HCC) Chronic idiopathic anal pain Fatigue Phantom pain Tobacco use disorder LIPID PANEL Routine 02/14/2025 1:41 PM CDT Urinary tract infection, site not specified Essential hypertension, malignant Hyperlipemia Avitaminosis D Anxiety disorder of childhood or adolescence Major depressive disorder, single episode, unspecified Chronic kidney disease, stage III (moderate) (HCC) Chronic idiopathic anal pain Fatigue Phantom pain Tobacco use disorder TSH Routine 02/14/2025 1:41 PM CDT Urinary tract infection, site not specified Essential hypertension, malignant Hyperlipemia Avitaminosis D Anxiety disorder of childhood or adolescence Major depressive disorder, single episode, unspecified Chronic kidney disease, stage III (moderate) (HCC) Chronic idiopathic anal pain Fatigue Phantom pain Tobacco use disorder VITAMIN B12 Routine 02/14/2025 1:41 PM CDT Urinary tract infection, site not specified Essential hypertension, malignant Hyperlipemia Avitaminosis D Anxiety disorder of childhood or adolescence Major depressive disorder, single episode, unspecified Chronic kidney disease, stage III (moderate) (HCC) Chronic idiopathic anal pain Fatigue Phantom pain Tobacco use disorder VITAMIN D 25 HYDROXY Routine 02/14/2025 1:41 PM CDT Urinary tract infection, site not specified Essential hypertension, malignant Hyperlipemia Avitaminosis D Anxiety disorder of childhood or adolescence Major depressive disorder, single episode, unspecified Chronic kidney disease, stage III (moderate) (HCC) Chronic idiopathic anal pain Fatigue Phantom pain Tobacco use disorder COMPREHENSIVE METABOLIC PANEL Routine 02/14/2025 1:41 PM CDT Urinary tract infection, site not specified Essential hypertension, malignant Hyperlipemia Avitaminosis D Anxiety disorder of childhood or adolescence Major depressive disorder, single episode, unspecified Chronic kidney disease, stage III (moderate) (HCC) Chronic idiopathic anal pain Fatigue Phantom pain Tobacco use disorder CBC WITH AUTO DIFFERENTIAL Routine 02/14/2025 1:41 PM CDT Urinary tract infection, site not specified Essential hypertension, malignant Hyperlipemia Avitaminosis D Anxiety disorder of childhood or adolescence Major depressive disorder, single episode, unspecified Chronic kidney disease, stage III (moderate) (HCC) Chronic idiopathic anal pain Fatigue Phantom pain Tobacco use disorder URINALYSIS AND REFLEX TO MICROSCOPIC AND CULTURE Routine 02/14/2025 1:41 PM CDT Urinary tract infection, site not specified Essential hypertension, malignant Hyperlipemia Avitaminosis D Anxiety disorder of childhood or adolescence Major depressive disorder, single episode, unspecified Chronic kidney disease, stage III (moderate) (HCC) Chronic idiopathic anal pain Fatigue Phantom pain Tobacco use disorder URINE CULTURE Routine 02/14/2025 1:41 PM CDT Urinary tract infection, site not specified Essential hypertension, malignant Hyperlipemia Avitaminosis D Anxiety disorder of childhood or adolescence Major depressive disorder, single episode, unspecified Chronic kidney disease, stage III (moderate) (HCC) Chronic idiopathic anal pain Fatigue Phantom pain Tobacco use disorder SCREENING MAMMOGRAM BILATERAL W CARMEN Schedule Routine, Read Routine (OP Routine) 11/02/2018 12:17 PM CDT Encounter for screening for malignant neoplasm of breast from Last 3 Months or Most Recently Relevant to Health Maintenance Results * (ABNORMAL) eGFR (02/14/2025 1:41 PM CDT) eGFR 54(L) >=60 mL/min/1. 73 m2 Comment: Interpretive Data Reference Interval Normal >/= 90 mL/min/1.73m2 Mildly decreased* 60 - 89 mL/min/1.73m2 Mildly to moderately decreased 45 - 59 mL/min/1.73m2 Moderately to severely decreased 30 - 44 mL/min/1.73m2 Severely decreased 15 - 29 mL/min/1.73m2 Kidney Failure < 15 mL/min/1.73m2 *Relative to young adult level Estimated glomerular filtration rate is determined by the 2020 CKD-EPI equation recommended by the National Kidney Foundation (A Unifying Approach to GFR Estimation: Recommendations of the NKF-ASK Task Force on Reassessing the Inclusion of Race in Diagnosing Kidney Disease, JASN 202). The CKD-EPI equation should not be used for patients with unstable renal function and has not been validated in children and those over 70. Current interpretive data was last reviewed 2021. Blood 02/14/2025 1:41 PM CDT 02/14/2025 6:20 PM CDT us Aubrey Villatoro MD LAB BLOOD ORDERABLES Jennifer l Result [facility] [address] [facility] Department [place] [address] * Differential, auto (02/14/2025 1:41 PM CDT) Neutrophil abs 2.99 1.50 - 6.50 K/cumm Imm gran abs 0.01 0.00 - 0.10 K/cumm [facility] Lymphocyte abs 1.64 0.80 - 3.30 K/cumm [facility] Monocyte abs 0.56 0.20 - 0.80 K/cumm [facility] Eosinophil abs 0.21 0.00 - 0.50 K/cumm [facility] Basophil abs 0.06 0.00 - 0.10 K/cumm [facility] Neutrophil pct 54.7 % [facility] Comment: Interpretive Data Percent cell count reference ranges are not reported, since discordance with absolute values may lead to misinterpretation of CBC data. Current Interpretive Data was last revised on 2017. Imm gran pct 0.2 % [facility] Comment: Interpretive Data Percent cell count reference ranges are not reported, since discordance with absolute values may lead to misinterpretation of CBC data. Current Interpretive Data was last revised on 2017. Lymphocyte pct 30.0 % [facility] Comment: Interpretive Data Percent cell count reference ranges are not reported, since discordance with absolute values may lead to misinterpretation of CBC data. Current Interpretive Data was last revised on 2017. Monocyte pct 10.2 % [facility] Comment: Interpretive Data Percent cell count reference ranges are not reported, since discordance with absolute values may lead to misinterpretation of CBC data. Current Interpretive Data was last revised on 2017. Eosinophil pct 3.8 % [facility] Comment: Interpretive Data Percent cell count reference ranges are not reported, since discordance with absolute values may lead to misinterpretation of CBC data. Current Interpretive Data was last revised on 2017. Basophil pct 1.1 % [facility] Comment: Interpretive Data Percent cell count reference ranges are not reported, since discordance with absolute values may lead to misinterpretation of CBC data. Current Interpretive Data was last revised on 2017. Blood 02/14/2025 1:41 PM CDT 02/14/2025 6:20 PM CDT us Aubrey Villatoro MD LAB BLOOD ORDERABLES Jennifer arnold Result [facility] [address] [facility] Department [place] [address] * Apolipoprotein B, serum (02/14/2025 1:41 PM CDT) Apolipoprotein B 87 mg/dL [facility] Comment: REFERENCE VALUE Desirable: <90 Above Desirable: 90-99 Borderline high: 100-119 High: 120-139 Very high: > or = 140 Test Performed by: [address] [address] Technology Services Manager: Letitia Mills Ph.D.; CLIA# [id number] Blood 02/14/2025 1:41 PM CDT 02/14/2025 6:17 PM CDT Narrative [facility] - 02/16/2025 2:33 PM CDT sent to lab; 02/15/2025 14:33:04 CDT [id number] us Aubrey Villatoro MD LAB BLOOD ORDERABLES Jennifer arnold Result [facility] [address] [facility] Department [place] [address] [facility] * (ABNORMAL) Urinalysis reflex to microscopic and culture Urine, clean voided (02/14/2025 1:41 PM CDT) Pathologist [facility] Color, ur Yellow Yellow Clarity, ur Clear Clear [facility] Specific gravity, ur 1.012 1.003 - 1.030 [facility] pH, urine 6.5 [facility] Comment: Interpretive Data U rine pH is affected by diet, medications, systemic acid-base disturbances, and renal tubular function. pH may affect urinary stone formation. For example, urine pH below 6.0 may help reduce the tendency for calcium phosphate stones and pH greater than 6.0 may reduce the tendency for uric acid stone formation. Source: [facility] Current Interpretive Data was last revised on 2017 Protein, ur ql Negative Negative [facility] Glucose, ur ql Negative Negative [facility] Ketones, ur Negative Negative [facility] Bilirubin, ur Negative Negative [facility] Blood, ur 2+(A) Negative [facility] Urobilinogen, ur <2.0 <2.0 mg/dL [facility] Nitrite, ur Negative Negative [facility] Leukocyte esterase, ur Negative Negative [facility] UA reflex comment Reflex to microscopic UA will be performed. [facility] Urine, clean voided 02/14/2025 1:41 PM CDT 02/14/2025 6:20 PM CDT us Aubrey Villatoro MD LAB MICROBIOLOGY - GENERA L ORDERABLES Final Result Performing Organization Address [facility] Co de Phone Number [address] [employer] [place] [place] [address] * CBC with auto differential (02/14/2025 1:41 PM CDT) WBC 5.47 3.80 - 9.90 K/cumm Hgb 13.2 11.9 - 15.5 g/dL [facility] Hct 40.9 35.6 - 45.5 % [facility] Plt 295 150 - 400 K/cumm [facility] MPV 11.1 9.1 - 12.3 fL [facility] RBC 4.30 3.90 - 5.20 M/cumm [facility] MCV 95.1 81.3 - 96.4 fL [facility] MCH 30.7 27.1 - 33.3 pg [facility] MCHC 32.3 32.3 - 35.7 g/dL [facility] RDW CV 12.7 11.1 - 14.9 % [facility] RDW SD 44.4 35.7 - 48.1 fL [facility] NRBC abs 0.00 0.00 - 0.01 K/cumm [facility] Blood 02/14/2025 1:41 PM CDT 02/14/2025 6:20 PM CDT us Aubrey Villatoro MD LAB BLOOD ORDERABLES Jennifer l Result Performing Organization Address [facility] Co de Phone Number [facility] [address] [employer] [place] [address] * (ABNORMAL) Vitamin D 25 hydroxy (02/14/2025 1:41 PM CDT) Vitamin D 25-OH 24.0(L) 30.0 - 80.0 ng/mL Blood Venous blood specimen / Unknown 02/14/2025 1:41 PM CDT 02/14/2025 6:20 PM CDT Aubrey Villatoro MD LAB BLOOD ORDERABLES Jennifer l Result Performing Organization Address [facility] de Phone Number [address] [address] * (ABNORMAL) Urinalysis, microscopic only (02/14/2025 1:41 PM CDT) [facility] WBC, ur 0-5 0 - 5 /HPF RBC, ur 6-10(A) 0 - 2 /HPF [facility] Epithelial cells, squamous, ur 1-5 0 - 5 /HPF [facility] Mucous, ur Present(A) [facility] Hyaline casts, ur 1-5 0 - 10 /LPF [facility] Urine, clean voided 02/14/2025 1:41 PM CDT 02/14/2025 6:20 PM CDT Aubrey Villatoro MD LAB URINE ORDERABLES Jennifer l Result Performing Organization Address [facility] de Phone Number [address] [address] * Urine culture Urine, clean voided (02/14/2025 1:41 PM CDT) [facility] Report Final Report: Less than 100,000 colonies/mL (clinically insignificant growth based on current clinical standards) Comment:Testing performed by : [facility], [address] [facility] [place]., [address] Organism (CLINICALLY INSIGNIFICANT GROWTH [facility] Urine, clean voided 02/14/2025 1:41 PM CDT 02/14/2025 8:11 PM CDT Narrative [facility] - 02/16/2025 8:34 AM CDT Testing performed by [facility] Microbiology Laboratory ([phone]) us Aubrey Villatoro MD LAB MICROBIOLOGY - GENERA L ORDERABLES Final Result Performing Organization Address [facility] Co de Phone Number [address] [place] [address] * TSH (02/14/2025 1:41 PM CDT) Thyroid Stimulating Hormone 0.95 0.30 - 4.20 mcIUnit/mL Blood Venous blood specimen / Unknown 02/14/2025 1:41 PM CDT 02/14/2025 6:20 PM CDT us Aubrey Villatoro MD LAB BLOOD ORDERABLES Jennifer l Result Performing Organization Address [facility] Co de Phone Number [address] [place] [address] * Vitamin B12 (02/14/2025 1:41 PM CDT) Vitamin B12 304 230 - 1,250 pg/mL Blood Venous blood specimen / Unknown 02/14/2025 1:41 PM CDT 02/14/2025 6:20 PM CDT us Aubrey Villatoro MD LAB BLOOD ORDERABLES Jennifer l Result Performing Organization Address [facility] Co de Phone Number [address] [place] [address] * (ABNORMAL) Lipid panel (02/14/2025 1:41 PM CDT) Cholesterol 205(H) 30 - 199 mg/dL Comment: Interpretive Data Ages < or = 19 years Acceptable: <170 mg/dL Borderline high: 170-199 mg/dL High: >or= 200 mg/dL Ages > or = 20 years Desirable: <200 mg/dL Borderline high: 200-239 mg/dL High: >or= 240 mg/dL Literature References: 1. Expert Panel on Integrated Guidelines for Cardiovascular Health and Risk Reduction in Children and Adolescents. Pediatrics 2011;128:S213 2. NCEP Expert Panel. Circulation 2004;110:227 Current Interpretive Data was last revised on 2018. Triglycerides 94 <=149 mg/dL [facility] Comment: Interpretive Data Ages < or = 9 years Acceptable: <75 mg/dL Borderline high: 75-99 mg/dL High: >or= 100 mg/dL Ages 10 to 20 years Acceptable: <90 mg/dL Borderline high: 90-129 mg/dL High: >or= 130 mg/dL Ages > or = 20 years Desirable: <150 mg/dL Borderline high: 150-199 mg/dL High: 200-499 mg/dL Very high: >or= 499 mg/dL Literature References: 1. Expert Panel on Integrated Guidelines for Cardiovascular Health and Risk Reduction in Children and Adolescents. Pediatrics 2011;128:S213 2. NCEP Expert Panel. Circulation 2004;110:227 Current Interpretive Data was last revised on 2018. HDL 71 >=40 mg/dL [facility] Comment: Interpretive Data Ages < or = 19 years Acceptable: >45 mg/dL Borderline low: 40-45 mg/dL Low: <40 mg/dL Ages > or = 20 years Desirable: >or= 60 mg/dL Low: <40 mg/dL Literature References: 1. Expert Panel on Integrated Guidelines for Cardiovascular Health and Risk Reduction in Children and Adolescents. Pediatrics 2011;128:S213 2. NCEP Expert Panel. Circulation 2004;110:227 Current Interpretive Data was last revised on 2018. LDL, calculated 117 <=129 mg/dL [facility] Comment: Interpretive Data Ages < or = 19 years Acceptable: <110 mg/dL Borderline high: 110-129 mg/dL High: >or= 130 mg/dL Ages > or = 20 years Optimal: <100 mg/dL Near optimal: 100-129 mg/dL Borderline high: 130-159 mg/dL High: >160 mg/dL Calculated using the Chiu LDL-C estimating equation. This equation was implemented on 2024. Prior to this date LDL-C was estimated using the Friedewald equation. Literature References: 1. Expert Panel on Integrated Guidelines for Cardiovascular Health and Risk Reduction in Children and Adolescents. Pediatrics 2011;128:S213 2. NCEP Expert Panel. Circulation 2004;110:227 3. Aram Bain et al. RAVINDER Cardiol. 2019September 27;5(5):540-548. doi: 10.1001/[email or web address] Current Interpretive Data was last revised on 2024. Non-HDL Cholesterol 134 mg/dL [facility] Comment: Interpretive Data Ages < or = 19 years Acceptable: <120 mg/dL Borderline high: 120-144 mg/dL High: >145 mg/dL Ages > or = 20 years When triglycerides are >200 mg/dL, Non-HDL cholesterol is a secondary target of therapy with treatment goals that are 30 mg/dL greater than the LDL cholesterol target. Literature References: 1. Expert Panel on Integrated Guidelines for Cardiovascular Health and Risk Reduction in Children and Adolescents. Pediatrics 2011;128:S213 2. NCEP Expert Panel. Circulation 2004;110:227 Current Interpretive Data was last revised on 2018. Chol/HDL ratio 3 [facility] Blood Venous blood specimen / Unknown 02/14/2025 1:41 PM CDT 02/14/2025 6:20 PM CDT us Aubrey Villatoro MD LAB BLOOD ORDERABLES Jennifer l Result [facility] [address] [facility] Department [place] [address] * (ABNORMAL) Comprehensive metabolic panel (02/14/2025 1:41 PM CDT) Sodium 141 135 - 145 mmol/L Potassium, pl 4.0 3.3 - 4.9 mmol/L [facility] Chloride 103 97 - 110 mmol/L [facility] CO2 28 22 - 32 mmol/L [facility] Anion gap 10 2 - 15 mmol/L [facility] BUN 7 6 - 25 mg/dL [facility] Creatinine 1.10 0.60 - 1.10 mg/dL [facility] Glucose 68(L) 70 - 199 mg/dL [facility] Comment: Interpretive Data Fasting glucose >/= 126 mg/dl is diagnostic for diabetes. Fasting is defined as no caloric intake for at least 8 hours. Fasting glucose between 100 mg/dl to 125 mg/dl is diagnostic of prediabetes. In a patient with classic symptoms of hyperglycemia or hyperglycemic crisis, a random glucose >/= 200 mg/dl is diagnostic for diabetes. In the absence of unequivocal hyperglycemia, results should be confirmed by repeat testing. The classification and Diagnosis of Diabetes Diabetes Care 202; 46: S19-S40. Current interpretive data was last revised 2022. Calcium 9.7 8.5 - 10.3 mg/dL [facility] Bilirubin, total 0.2 0.1 - 1.2 mg/dL [facility] Protein, pl 6.9 6.5 - 8.5 g/dL [facility] Albumin 4.1 3.5 - 5.0 g/dL [facility] Alk phos 108 40 - 130 Units/L [facility] ALT 18 7 - 45 Units/L [facility] AST 26 10 - 45 Units/L [facility] Blood Venous blood specimen / Unknown 02/14/2025 1:41 PM CDT 02/14/2025 6:20 PM CDT us Aubrey Villatoro MD LAB BLOOD ORDERABLES Jennifer l Result [facility] [address] [facility] Department [place] [address] * Screening Mammogram Bilateral W Carmen (11/02/2018 12:17 PM CDT) Anatomical Region Laterality Modality Breast Bilateral Mammography Narrative 11/03/2018 10:01 AM CDT Mammogram Technique: Bilateral Digital Breast Tomosynthesis, Bilateral C-view 2D Screening mammogram. Views obtained: bilateral craniocaudal and bilateral mediolateral oblique. Computer Aided Detection was performed. Mammogram Findings: The present examination has been compared to prior imaging studies performed at [facility] on 09/16/2016 and 10/13/2017. There are scattered [...] compared to prior imaging studies performed at [facility] on 09/16/2016 and 10/13/2017. There are scattered areas of fibroglandular density. There is no suspicious abnormality in either breast. Findings compatible with prior left breast conservation therapy arenoted. Impression: Annual screening mammography is recommended. OVERALL FINAL ASSESSMENT: BI-RADS CATEGORY 1: Negative. 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
--- OUTSIDE RECORDS SUMMARY | 2025-03-19 14:24 | XMS_ITS | Clinical Summary ---
Author Organization [facility] [employer] [facility] Address [address] [place] [address] Care Team Providers Care Gas Charger Name Role Phone Jesus Hurtado MD Primary Care Provider Unavail able Source Comments [facility] [employer] [facility],non-owned Affiliates and Associated Physician Practices is amultiple site organization consisting of ambulatory clinics and hospital sitesin [place], [place], [place] and [place]. This disclosure is being madepursuant to the Care Everywhere program and may not contain all information available regarding this patient. 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
--- OUTSIDE RECORDS SUMMARY | 2025-03-19 14:25 | XMS_ITS | Patient Health Record ---
Author Organization [facility] [employer] [facility] [employer] Address [address] [address] Support Name Relationship Address Phone SARI STRINGER Emergency Contact Unknown [phone] LINNETTE MICHEL Guarantor Unknown [phone] Reason For Referral No Information Medications Medication SIG (Take, Route, Frequency, Duration) Notes Start Date End Date Status PARoxetine HCl 40 MG Tablet Oral 01/03/2019 Active ALPRAZolam 0.25 MG Tablet Oral 01/03/2019 Active PARoxetine HCl 20 MG Tablet Oral 01/03/2019 Active methylPREDNISolone 4 MG Tablet Therapy Pack Oral 01/03/2019 Active Alendronate Sodium 70 MG Tablet Oral 01/03/2019 Active amLODIPine Besylate 10 MG Tablet Oral 01/03/2019 Active Lisinopril 20 MG Tablet Oral 01/03/2019 Active oxyCODONE HCl 10 MG Tablet Oral 01/03/2019 Active Olopatadine HCl 0.2 % Solution Ophthalmic 01/03/2019 Active Trintellix 5 MG Tablet Oral 01/03/2019 Active Fluticasone Propionate Diskus 50 MCG/ACT Aerosol Powder Breath Activated Inhalation *Reorder from Finale Desserts for eRx and Interaction Alerts* 01/03/2019 Active traZODone HCl 50 MG Tablet Oral 01/03/2019 Active Immunizations Vaccine Route Administration Date Status Comme nts Pneumococcal conjugate PCV 7 Unknown 09/28/2012 Adminis tered Influenza virus vaccine, quadrivalent (IIV4), split virus, 0.25 mL dosage Unknown 02/28/2018 Administered Social History Social History Additional Details Category Social Info Options Details Migrated Social History Migrated Social History Alcohol Intake: Occasional 04/01/2020,Tobacco Years: Current every day smoker 04/01/2020,Smoking Status: 30 04/01/2020 Plan Of Treatment No Information Insurance Providers Payer Name Payer Address Payer Phone Subscriber Number Group Number Insured Name Patient Relationship to Insured Coverage Start Date Coverage End Date [place] [address] [place] [phone] [id number] RONDA SullivanLINNETTE Self - patient is the insured Aarp use other one [address] [place] [address] [id number] RONDA SullivanLINNETTE Self - patient is the insured [employer] Medicare Replacement/ Advantage - Hmo [address] [address] [place] [address] [id number] EDUARDOHELDER SullivanLINNETTE Self - patient is the insured Medical (General) History Surgical History Surgery Date(Month/Year) Removal of gallbladder (14023) Removal of ovary(s) (94702) Unlisted procedure breast () Hysterectomy/revise vagina (09146)
== END 2025-03-19 11:30 | disposition home or self-care (01) ==
PROVIDERS: PCP Family Medicine; Visit Provider Family Medicine
DX: N39.0 Urinary tract infection, site not specified (principal); I10 Essential (primary) hypertension; E78.5 Hyperlipidemia, unspecified; Z79.899 Other long term (current) drug therapy
CPT/HCPCS: 36415; 80061; 81001; 82172; 84443; 87086

== ENCOUNTER 2025-04-12 09:53 | Outpatient (CLI) | payer MEDICARE, SELFPAY ==
--- NOTE | ~2025-04-12 | US_ITS ---
US abdomen limited Indication: R10.11 - Right upper quadrant pain Comparison: None Technique: Gay-scale and color Doppler images were obtained. Findings: LIVER: Unremarkable, liver contours intact, no lesions. Normal echogenicity. . GALLBLADDER/BILIARY: Post cholecystectomy. CBD normal. [place] sign negative. PANCREAS: Unremarkable. Right Kidney: Right kidney 7.6 x 3.4 x 3.5 cm, normal. Impression: No acute abnormality. Reviewed, dictated and finalized at location [facility] Impression: No acute abnormality.
== END 2025-04-12 09:54 | disposition home or self-care (01) ==
PROVIDERS: PCP Family Medicine; Visit Provider Family Medicine
DX: R10.11 Right upper quadrant pain (principal)
CPT/HCPCS: 76705

== ENCOUNTER 2025-04-18 10:06 | Outpatient (CLI) | payer MEDICARE, SELFPAY ==
--- OUTSIDE RECORDS SUMMARY | 2025-04-18 12:05 | XMS_ITS | Clinical Summary ---
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 The CKD-EPI equation should not be used for patients with unstable renal function and has not been validated in children and those over 70. Current interpretive data was last reviewed 2021. Blood 02/14/2025 1:41 PM CDT 02/14/2025 6:20 PM CDT us Aubrey Villatoro MD LAB BLOOD ORDERABLES Jennifer l Result [facility] [address] [place] [address] * Differential, auto (02/14/2025 1:41 PM CDT) Neutrophil abs 2.99 1.50 - 6.50 K/cumm Imm gran abs 0.01 0.00 - 0.10 K/cumm [facility] Lymphocyte abs 1.64 0.80 - 3.30 K/cumm [facility] Monocyte abs 0.56 0.20 - 0.80 K/cumm [facility] Eosinophil abs 0.21 0.00 - 0.50 K/cumm [facility] Basophil abs 0.06 0.00 - 0.10 K/cumm [facility] Neutrophil pct 54.7 % [facility] Comment: Interpretive Data Percent cell count reference ranges are not reported, since discordance with absolute values may lead to misinterpretation of CBC data. Current Interpretive Data was last revised on 2017. Imm gran pct 0.2 % [facility] Comment: Interpretive Data Percent cell count reference ranges are not reported, since discordance with absolute values may lead to misinterpretation of CBC data. Current Interpretive Data was last revised on 2017. Lymphocyte pct 30.0 % [facility] Comment: Interpretive Data Percent cell count reference ranges are not reported, since discordance with absolute values may lead to misinterpretation of CBC data. Current Interpretive Data was last revised on 2017. Monocyte pct 10.2 % [facility] Comment: Interpretive Data Percent cell count reference ranges are not reported, since discordance with absolute values may lead to misinterpretation of CBC data. Current Interpretive Data was last revised on 2017. Eosinophil pct 3.8 % [facility] Comment: Interpretive Data Percent cell count reference ranges are not reported, since discordance with absolute values may lead to misinterpretation of CBC data. Current Interpretive Data was last revised on 2017. Basophil pct 1.1 % [facility] Comment: Interpretive Data Percent cell count reference ranges are not reported, since discordance with absolute values may lead to misinterpretation of CBC data. Current Interpretive Data was last revised on 2017. Blood 02/14/2025 1:41 PM CDT 02/14/2025 6:20 PM CDT us Aubrey Villatoro MD LAB BLOOD ORDERABLES Jennifer arnold Result [facility] [address] [place] [address] * Apolipoprotein B, serum (02/14/2025 1:41 PM CDT) Pathologist [facility] Apolipoprotein B 87 mg/dL [facility] Comment: REFERENCE VALUE Desirable: <90 Above Desirable: 90-99 Borderline high: 100-119 High: 120-139 Very high: > or = 140 Test Performed by: [facility] - [address] [address] Automotive Engineering Teacher: Letitia Mills Ph.D.; CLIA# [id number] Blood 02/14/2025 1:41 PM CDT 02/14/2025 6:17 PM CDT Narrative [facility] - 02/16/2025 2:33 PM CDT sent to lab; 02/15/2025 14:33:04 CDT [id number] us Aubrey Villatoro MD LAB BLOOD ORDERABLES Jennifer arnold Result [facility] [address] [place] [address] [facility] * (ABNORMAL) Urinalysis reflex to microscopic and culture Urine, clean voided (02/14/2025 1:41 PM CDT) Pathologist [facility] Color, ur Yellow Yellow Clarity, ur Clear Clear [facility] Specific gravity, ur 1.012 1.003 - 1.030 [facility] pH, urine 6.5 [facility] Comment: Interpretive Data U rine pH is affected by diet, medications, systemic acid-base disturbances, and renal tubular function. pH may affect urinary stone formation. For example, urine pH below 6.0 may help reduce the tendency for calcium phosphate stones and pH greater than 6.0 may reduce the tendency for uric acid stone formation. Source: [facility] Current Interpretive Data was last revised on 2017 Protein, ur ql Negative Negative [facility] Glucose, ur ql Negative Negative [facility] Ketones, ur Negative Negative [facility] Bilirubin, ur Negative Negative [facility] Blood, ur 2+(A) Negative [facility] Urobilinogen, ur <2.0 <2.0 mg/dL [facility] Nitrite, ur Negative Negative [facility] Leukocyte esterase, ur Negative Negative [facility] UA reflex comment Reflex to microscopic UA will be performed. [facility] Urine, clean voided 02/14/2025 1:41 PM CDT 02/14/2025 6:20 PM CDT us Aubrey Villatoro MD LAB MICROBIOLOGY - GENERA L ORDERABLES Final Result Performing Organization Address [facility] Co de Phone Number [address] [place] [address] * CBC with auto differential (02/14/2025 1:41 PM CDT) WBC 5.47 3.80 - 9.90 K/cumm Hgb 13.2 11.9 - 15.5 g/dL [facility] Hct 40.9 35.6 - 45.5 % [facility] Plt 295 150 - 400 K/cumm [facility] MPV 11.1 9.1 - 12.3 fL [facility] RBC 4.30 3.90 - 5.20 M/cumm [facility] MCV 95.1 81.3 - 96.4 fL [facility] MCH 30.7 27.1 - 33.3 pg [facility] MCHC 32.3 32.3 - 35.7 g/dL [facility] RDW CV 12.7 11.1 - 14.9 % [facility] RDW SD 44.4 35.7 - 48.1 fL [facility] NRBC abs 0.00 0.00 - 0.01 K/cumm [facility] Blood 02/14/2025 1:41 PM CDT 02/14/2025 6:20 PM CDT us Aubrey Villatoro MD LAB BLOOD ORDERABLES Jennifer l Result Performing Organization Address [facility] Co de Phone Number [address] [employer] [place] [address] * (ABNORMAL) Vitamin D 25 hydroxy (02/14/2025 1:41 PM CDT) Vitamin D 25-OH 24.0(L) 30.0 - 80.0 ng/mL Blood Venous blood specimen / Unknown 02/14/2025 1:41 PM CDT 02/14/2025 6:20 PM CDT Aubrey Villatoro MD LAB BLOOD ORDERABLES Jennifer l Result Performing Organization Address [facility] de Phone Number [address] [address] * (ABNORMAL) Urinalysis, microscopic only (02/14/2025 1:41 PM CDT) [facility] WBC, ur 0-5 0 - 5 /HPF RBC, ur 6-10(A) 0 - 2 /HPF [facility] Epithelial cells, squamous, ur 1-5 0 - 5 /HPF [facility] Mucous, ur Present(A) [facility] Hyaline casts, ur 1-5 0 - 10 /LPF [facility] Urine, clean voided 02/14/2025 1:41 PM CDT 02/14/2025 6:20 PM CDT Aubrey Villatoro MD LAB URINE ORDERABLES Jennifer l Result Performing Organization Address [facility] de Phone Number [address] [address] * Urine culture Urine, clean voided (02/14/2025 1:41 PM CDT) Pathologist [facility] Report Final Report: Less than 100,000 colonies/mL (clinically insignificant growth based on current clinical standards) Comment:Testing performed by : [facility], [address] [facility] [place] [place]., [address] Organism (CLINICALLY INSIGNIFICANT GROWTH [facility] Urine, clean voided 02/14/2025 1:41 PM CDT 02/14/2025 8:11 PM CDT Narrative [facility] - 02/16/2025 8:34 AM CDT Testing performed by [facility] Microbiology Laboratory ([phone]) us Aubrey Villatoro MD LAB MICROBIOLOGY - GENERA L ORDERABLES Final Result Performing Organization Address City/[facility] Co de Phone Number [address] [address] * TSH (02/14/2025 1:41 PM CDT) Thyroid Stimulating Hormone 0.95 0.30 - 4.20 mcIUnit/mL Blood Venous blood specimen / Unknown 02/14/2025 1:41 PM CDT 02/14/2025 6:20 PM CDT us Aubrey Villatoro MD LAB BLOOD ORDERABLES Jennifer l Result Performing Organization Address [facility] Co de Phone Number [address] [employer] [place] [address] * Vitamin B12 (02/14/2025 1:41 PM CDT) Vitamin B12 304 230 - 1,250 pg/mL Blood Venous blood specimen / Unknown 02/14/2025 1:41 PM CDT 02/14/2025 6:20 PM CDT us Aubrey Villatoro MD LAB BLOOD ORDERABLES Jennifer l Result Performing Organization Address [facility] Co de Phone Number [address] [employer] [place] [address] * (ABNORMAL) Lipid panel (02/14/2025 1:41 PM [...] revised on 2018. Triglycerides 94 <=149 mg/dL [facility] Comment: Interpretive Data Ages < or = [...] 3. Aram Bain et al. RAVINDER Cardiol. 2020 September 27;5(5):540-548. doi: 10.1001/[email or web address].2020.0013 Current Interpretive Data was last revised on 2024. Non-HDL Cholesterol 134 mg/dL [facility] Comment: Interpretive Data Ages < or = [...] last revised on 2018. Chol/HDL ratio 3 [facility] Blood Venous blood specimen / Unknown 02/14/2025 1:41 PM CDT 02/14/2025 6:20 PM CDT us Aubrey Villatoro MD LAB BLOOD ORDERABLES Jennifer l Result [facility] [address] [facility] [place] [address] * (ABNORMAL) Comprehensive metabolic panel (02/14/2025 1:41 PM CDT) Sodium 141 135 - 145 mmol/L Potassium, pl 4.0 3.3 - 4.9 mmol/L [facility] Chloride 103 97 - 110 mmol/L [facility] CO2 28 22 - 32 mmol/L [facility] Anion gap 10 2 - 15 mmol/L [facility] BUN 7 6 - 25 mg/dL [facility] Creatinine 1.10 0.60 - 1.10 mg/dL [facility] Glucose 68(L) 70 - 199 mg/dL [facility] Comment: Interpretive Data Fasting glucose >/= 126 [...] 2022. Calcium 9.7 8.5 - 10.3 mg/dL [facility] Bilirubin, total 0.2 0.1 - 1.2 mg/dL [facility] Protein, pl 6.9 6.5 - 8.5 g/dL [facility] Albumin 4.1 3.5 - 5.0 g/dL [facility] Alk phos 108 40 - 130 Units/L [facility] ALT 18 7 - 45 Units/L [facility] AST 26 10 - 45 Units/L [facility] Blood Venous blood specimen / Unknown 02/14/2025 1:41 PM CDT 02/14/2025 6:20 PM CDT us Aubrey Villatoro MD LAB BLOOD ORDERABLES Jennifer l Result [facility] [address] [place] [address] * Screening Mammogram Bilateral W Carmen (11/02/2018 12:17 PM CDT) Anatomical Region Laterality Modality Breast Bilateral Mammography Narrative 11/03/2018 10:01 AM CDT Mammogram Technique: Bilateral Digital Breast Tomosynthesis, Bilateral C-view 2D Screening mammogram. Views obtained: bilateral craniocaudal and bilateral mediolateral oblique. Computer Aided Detection was performed. Mammogram Findings: The present examination has been compared to prior imaging studies performed at [facility] on 09/16/2016 and 10/13/2017. There are [...] compared to prior imaging studies performed at [facility] on 09/16/2016 and 10/13/2017. There are scattered areas of fibroglandular density. There is no suspicious abnormality in either breast. Findings compatible with prior left breast conservation therapy arenoted. Impression: Annual screening mammography is recommended. OVERALL FINAL ASSESSMENT: BI-RADS CATEGORY 1: Negative. [facility] HOME CARE NURSE IMG MAMMO PROCEDURES Final R esult from Last 3 Months or Most Recently Relevant to Health Maintenance Insurance [employer] HMO REF [facility] MEDICARE ADVANTAGE [facility] MEDICARE ADVANTAGE Care Teams Tugger Operator Relationship Specialty Start Date End Date Aubrey Villatoro MD [address] [place] [id number] PCP - General Family Practice 12/22/23 Chuy Webber DO [address] [place] [address] Medical Oncologist/Creping Machine Operator Hematology and Oncology 04/26/18
--- NOTE | 2025-05-07 16:18 | WPDHOMESLEEP ---
Sleep Study - Home Unattended Date of Study: 04/18/25 Ordering Provider: Aubrey Villatoro MD Interpreting Provider: Shanta Denton, DO Home Sleep Study Type: Watch PAT Height: 1.52 m Weight: 53.524 kg Body Mass Index: 23.0 Neck Circumference (inches): 13.25 [place]: 21 Reason for Sleep Study Excessive daytime sleepiness Sleep History The patient is a 69-year-old female that had a sleep study ordered by her primary care physician for evaluation of sleep apnea. The patient occasionally awakens from sleep short of breath. She occasionally awakens at night with heartburn, belching or cough. She frequently snores but is never loud enough that others complain. She frequently has trouble sleeping when she has a cold. She occasionally wakes up gasping for air throughout the night. She occasionally has breathing problems at night observed by herself or others. She occasionally sweats excessively at night. She occasionally has heart palpitations or irregular heartbeats during the night. She frequently falls asleep during the day and occasionally falls asleep while driving. She denies sleep paralysis and cataplexy. She denies having trouble at school or work due to sleepiness. She occasionally experiences vivid dreamlike scenes upon awakening or falling asleep. She denies feeling afraid of going to sleep. She occasionally has nightmares. She occasionally remembers her dreams. She frequently has thoughts racing through her mind. She frequently feels sad, depressed and anxious. She occasionally has muscular tension. She occasionally notices parts of her body jerk. She occasionally kicks during the night. She occasionally has crawling and aching feelings in her legs and occasionally has leg pain during the night. She denies grinding her teeth during sleep and denies awakening with morning jaw pain. She is constantly bothered by pain during the day and constantly awakened by pain during the night. She constantly wakes up feeling stiff in the morning. She occasionally wakes up with sore or achy muscles. She constantly wakes up with pain in the neck, spine and other joints. The patient's bedtime is variable. It can take her 1 hour to fall asleep. She wakes up every few hours to urinate and it can take several hours to fall back asleep. She wakes up between 4:29 a.m. every morning. The amount of sleep she gets per night is variable. She does not have a specific amount of time that she stays in bed after waking up in the morning. She currently lives with her adult son. She denies consuming any caffeinated beverages within 2 hours of bedtime. She denies engaging in physical exercise before bedtime. She will watch television before falling asleep. She will take naps in afternoon or the evening but they are not refreshing. She consumes 2 cups of coffee and 3-4 caffeinated sodas per day. She currently smokes 1 pack of cigarettes per day. She denies alcohol and recreational drug use. [facility], LATER [facility] Past Medical History Medical History Hyperlipidemia Arthritis of right knee Kidney disease, chronic, stage II (GFR 60-89 ml/min) History of breast cancer Hepatitis B Peripheral neuropathy Degenerative joint disease of cervical and lumbar spine Corns and callosities Trochanteric bursitis, left hip Left hip pain Allergies Scalp lesion Chronic left shoulder pain Multiple lesions of face Left upper arm pain Dysphagia Left knee pain Chronic headache Discoloration of skin Anxiety (09/26/18) Coronary arteriosclerosis in council artery Chronic generalized pain Chronic obstructive pulmonary disease, unspecified Essential (primary) hypertension Gastro-esophageal reflux disease without esophagitis Pure hypercholesterolemia Vitamin D deficiency Surgical History Surgical History History of tonsillectomy History of partial mastectomy History of neck surgery History of bladder surgery History of cholecystectomy History of knee surgery left knee- 1 bone tumor removed, 2 knee scopes History of total hysterectomy Family History Family History Mother Hypertension Carcinoma of colon History of lung cancer Kidney disease Father Patient's father is Sibling Kidney disease Social History Social History Smoking packs per day: 1 Smoking cigarettes per day: 20.0 Years smoked: 30 Smoking pack-years: 30.00 Smoking status: Current every day smoker Tobacco type: cigarettes Second hand tobacco smoke exposure: Yes Alcohol intake: current Alcohol use details: rarely Substance use: never Substance use type: does not use Lack of Transportation: No Lack of Food: Never True Current Housing: I Have Housing Concerned About Future Housing: No Difficulty Paying Gas/Electric Bills: No Difficulty Paying for Meds: No Currently Unemployed: No Education: High School Diploma/GED Difficulty w/ Childcare or Family Care: YES Living arrangements: with family Additional living arrangements comments: lives with 95yo mother and adult son Occupation/Education: retired Medications Home Medications ?Medication ?Instructions ?Recorded ?Confirmed ?Type cholecalciferol (vitamin D3) 50 2,000 unit PO DAILY 03/26/19 02/28/24 History mcg (2,000 unit) capsule albuterol sulfate 90 mcg/actuation 1 puff inhalation Q4H PRN 02/01/24 02/28/24 Rx aerosol inhaler shortness of breath or wheezing #8.5 grams mecobalamin (vitamin B12) 1,000 2,000 mcg PO DAILY 02/12/25 History mcg chewable tablet bupropion HCl 150 mg 24 hr tablet, See Rx Instructions .Route 03/25/25 Rx extended release .COMPLEX #90 tabs amlodipine 2.5 mg tablet See Rx Instructions .Route 04/08/25 Rx .COMPLEX #90 tabs lisinopril 20 mg tablet See Rx Instructions .Route 04/08/25 Rx .COMPLEX #180 tabs paroxetine HCl 30 mg tablet See Rx Instructions .Route 04/08/25 Rx .COMPLEX #180 tabs hydrocodone 10 mg-acetaminophen 1 tablet PO Q6H PRN pain #120 tabs 05/01/25 Rx 325 mg tablet diazepam 5 mg tablet 5 mg PO TID PRN anxiety #90 tabs 05/03/25 Rx Sleep Procedure The sleep study was completed using Be-BoundT a technically adequate device with seven channels: peripheral arterial tone, actigraphy, body position, snore, respiratory movement, pulse oximetry, sleep staging, and heart rate. Prior to using the device, the patient received verbal and written instructions for its application and was provided with the help desk phone number for additional telephonic instruction with 24-hour availability of qualified personnel to answer questions. The study was scored using CMS guidelines. Sleep Architecture The total recording time is 10 hrs, 43 min. The total sleep time is 6 hrs, 52 min. Sleep latency is 17 minutes. REM latency is 497 minutes. The patient had 12 episodes of waking. Sleep architecture shows 18.8% deep sleep, 78.7% light sleep, and (as % Total Sleep Time) showed NREM (Light 78.7%; Deep 18.8%), and a 2.5% stage REM. The patient spent 26.4% of total sleep time in the supine position. Sleep efficiency was 64.07. Respiratory Analysis The overall AHI (pAHI 4%:) is 0.2. The overall AHI (pAHI 3%:) is 0.6. The central AHI is 0.2. The AHI was N/A in NREM and N/A in REM sleep. The AHI was 2.2 in Supine and 0.0 in Non-supine sleep. Percent of Harrison Mercedes respirations is 0.0. Oximetry Data The oxygen desaturation index (OSEAS 4%:) is 0.0. The mean saturation is 96%, and the lowest saturation is 94%. Time spent with saturation < 88% is 0.0 minutes. Snoring Profile Snoring average intensity is 40 dB. The patient snored above 45 decibels for 6.6 minutes, 1.6% of sleep time. Cardiac Profile The average pulse rate is 65 beats per minutes. The lowest pulse rate is 55 bpm. The highest pulse rate reported is 81 bpm. Atrial fibrillation was not detected. Premature beats occur <0.1 per minute. Assessment and Plan Assessment and Plan (1) Sleep disturbances: Code(s): G47.9 - Sleep disorder, unspecified Status: Acute Assessment and Plan: The patient had an overall AHI of 0.2 with desaturation down to 94%. This is not consistent with sleep-disordered breathing. Due to the severity of the patient's hypersomnia, further evaluation is warranted. I recommend that the patient have a split study with the use of a hypnotic to ensure we obtain enough sleep data. Data The data obtained during this sleep study is adequate for interpretation. Certification This sleep study has been reviewed by a board certified sleep medicine physician.
== END 2025-04-19 09:03 | disposition home or self-care (01) ==
LOC: ANHCSM 10:09
PROVIDERS: PCP Family Medicine; Visit Provider Family Medicine
DX: G47.10 Hypersomnia, unspecified (principal)
CPT/HCPCS: 95800

== ENCOUNTER 2025-05-15 12:22 | Outpatient (CLI) | payer MEDICARE, SELFPAY ==
--- NOTE | ~2025-05-15 | CT_ITS ---
EXAMINATION:CT lung screening DATE: 05/15/2025 13:20 INDICATION: Screening TECHNIQUE: Computed tomography (CT) of the chest was performed without intravenous contrast. The dose-length product (DLP) was 61.00 mGy-cm. COMPARISON: April 07, 2022 FINDINGS: 2 mm upper lobe nodules described on the previous exam not clearly changed. 5 mm calcified granulomas nodule right lung base. No suspicious nodules. Emphysematous changes throughout the lungs which are otherwise clear. Mediastinal structures, visualized portions of the upper abdomen, bony structures, and visualized upper thoracic soft tissues appear grossly stable. IMPRESSION: No suspicious nodules or masses. Lung RADS 2. Correlate with follow-up low-dose lung cancer screening chest CT in 12 months. Reviewed, dictated and finalized at location A. [facility] [employer] IMPRESSION: No suspicious nodules or masses. Lung RADS 2. Correlate with foll ow-up low-dose lung cancer screening chest CT in 12 months.
--- OUTSIDE RECORDS SUMMARY | 2025-05-15 14:18 | XMS_ITS | Clinical Summary ---
Author Organization [facility] Address [address] [place] [address] Care Team Providers Care Glass Wool Blanket Machine Feeder Name Role Phone Unavailable Primary Care Provider [...] 2005 Dexa Scan (General) 2020 COVID-19 Vaccine ( - 2024-2 6 season) 2025 Influenza Adult (#1) 2025 RSV [...]
--- OUTSIDE RECORDS SUMMARY | 2025-05-15 14:18 | XMS_ITS | Clinical Summary ---
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 Gender Identity Not on file Sexual [...] MD LAB BLOOD ORDERABLES Jennifer l Result [facility] [address] [facility] Department [place] [address] * Differential, auto (02/14/2025 1:41 PM CDT) Neutrophil abs 2.99 1.50 - 6.50 K/cumm Imm gran abs 0.01 0.00 - 0.10 K/cumm [facility] Lymphocyte abs 1.64 0.80 - 3.30 K/cumm [facility] Monocyte abs 0.56 0.20 - 0.80 K/cumm [facility] Eosinophil abs 0.21 0.00 - 0.50 K/cumm [facility] Basophil abs 0.06 0.00 - 0.10 K/cumm [facility] Neutrophil pct 54.7 % [facility] Comment: Interpretive Data Percent cell count reference ranges are not reported, since discordance with absolute values may lead to misinterpretation of CBC data. Current Interpretive Data was last revised on 2017. Imm gran pct 0.2 % [facility] Comment: Interpretive Data Percent cell count reference ranges are not reported, since discordance with absolute values may lead to misinterpretation of CBC data. Current Interpretive Data was last revised on 2017. Lymphocyte pct 30.0 % [facility] Comment: Interpretive Data Percent cell count reference ranges are not reported, since discordance with absolute values may lead to misinterpretation of CBC data. Current Interpretive Data was last revised on 2017. Monocyte pct 10.2 % [facility] Comment: Interpretive Data Percent cell count reference ranges are not reported, since discordance with absolute values may lead to misinterpretation of CBC data. Current Interpretive Data was last revised on 2017. Eosinophil pct 3.8 % [facility] Comment: Interpretive Data Percent cell count reference ranges are not reported, since discordance with absolute values may lead to misinterpretation of CBC data. Current Interpretive Data was last revised on 2017. Basophil pct 1.1 % [facility] Comment: Interpretive Data Percent cell count reference ranges are not reported, since discordance with absolute values may lead to misinterpretation of CBC data. Current Interpretive Data was last revised on 2017. Blood 02/14/2025 1:41 PM CDT 02/14/2025 6:20 PM CDT us Aubrey Villatoro MD LAB BLOOD ORDERABLES Jennifer arnold Result [facility] [address] [facility] Department [place] [address] * Apolipoprotein B, serum (02/14/2025 1:41 PM CDT) Pathologist [facility] Apolipoprotein B 87 mg/dL [facility] Comment: REFERENCE VALUE Desirable: <90 Above Desirable: 90-99 Borderline high: 100-119 High: 120-139 Very high: > or = 140 Test Performed by: [facility] - [address] [address] Pilot Submersible: Letitia Mills Ph.D.; CLIA# [id number] Blood 02/14/2025 1:41 PM CDT 02/14/2025 6:17 PM CDT Narrative [facility] - 02/16/2025 2:33 PM CDT sent to lab; 02/15/2025 14:33:04 CDT [id number] us Aubery Villatoro MD LAB BLOOD ORDERABLES Jennifer arnold Result [facility] [address] [facility] Department [place] [address] [facility] * (ABNORMAL) Urinalysis reflex to microscopic and culture Urine, clean voided (02/14/2025 1:41 PM CDT) Pathologist [facility] Color, ur Yellow Yellow Clarity, ur Clear Clear [facility] Specific gravity, ur 1.012 1.003 - 1.030 [facility] pH, urine 6.5 [facility] Comment: Interpretive Data U rine pH is affected by diet, medications, systemic acid-base disturbances, and renal tubular function. pH may affect urinary stone formation. For example, urine pH below 6.0 may help reduce the tendency for calcium phosphate stones and pH greater than 6.0 may reduce the tendency for uric acid stone formation. Source: [facility] Current Interpretive Data was last revised on 2017 Protein, ur ql Negative Negative [facility] Glucose, ur ql Negative Negative [facility] Ketones, ur Negative Negative [facility] Bilirubin, ur Negative Negative [facility] Blood, ur 2+(A) Negative [facility] Urobilinogen, ur <2.0 <2.0 mg/dL [facility] Nitrite, ur Negative Negative [facility] Leukocyte esterase, ur Negative Negative [facility] UA reflex comment Reflex to microscopic UA will be performed. [facility] Urine, clean voided 02/14/2025 1:41 PM CDT 02/14/2025 6:20 PM CDT us Aubrey Villatoro MD LAB MICROBIOLOGY - GENERA L ORDERABLES Final Result Performing Organization Address [facility] Co de Phone Number [address] [place] [address] * CBC with auto differential (02/14/2025 1:41 PM CDT) WBC 5.47 3.80 - 9.90 K/cumm Hgb 13.2 11.9 - 15.5 g/dL [facility] Hct 40.9 35.6 - 45.5 % [facility] Plt 295 150 - 400 K/cumm [facility] MPV 11.1 9.1 - 12.3 fL [facility] RBC 4.30 3.90 - 5.20 M/cumm [facility] MCV 95.1 81.3 - 96.4 fL [facility] MCH 30.7 27.1 - 33.3 pg [facility] MCHC 32.3 32.3 - 35.7 g/dL [facility] RDW CV 12.7 11.1 - 14.9 % [facility] RDW SD 44.4 35.7 - 48.1 fL [facility] NRBC abs 0.00 0.00 - 0.01 K/cumm [facility] Blood 02/14/2025 1:41 PM CDT 02/14/2025 6:20 PM CDT us Aubrey Villatoro MD LAB BLOOD ORDERABLES Jennifer l Result Performing Organization Address [facility] Co de Phone Number [address] [facility] [place] [address] * (ABNORMAL) Vitamin D 25 hydroxy (02/14/2025 1:41 PM CDT) Vitamin D 25-OH 24.0(L) 30.0 - 80.0 ng/mL Blood Venous blood specimen / Unknown 02/14/2025 1:41 PM CDT 02/14/2025 6:20 PM CDT Aubrey Villatoro MD LAB BLOOD ORDERABLES Jennifer l Result Performing Organization Address [facility] de Phone Number [address] [address] * (ABNORMAL) Urinalysis, microscopic only (02/14/2025 1:41 PM CDT) [facility] WBC, ur 0-5 0 - 5 /HPF RBC, ur 6-10(A) 0 - 2 /HPF [facility] Epithelial cells, squamous, ur 1-5 0 - 5 /HPF [facility] Mucous, ur Present(A) [facility] Hyaline casts, ur 1-5 0 - 10 /LPF [facility] Urine, clean voided 02/14/2025 1:41 PM CDT 02/14/2025 6:20 PM CDT Aubrey Villatoro MD LAB URINE ORDERABLES Jennifer l Result Performing Organization Address [facility] de Phone Number [address] [address] * Urine culture Urine, clean voided (02/14/2025 1:41 PM CDT) Pathologist [facility] Report Final Report: Less than 100,000 colonies/mL (clinically insignificant growth based on current clinical standards) Comment:Testing performed by : [facility], [address] [facility] [place]., [address] Organism (CLINICALLY INSIGNIFICANT GROWTH [facility] Urine, clean voided 02/14/2025 1:41 PM CDT 02/14/2025 8:11 PM CDT Narrative [facility] - 02/16/2025 8:34 AM CDT Testing performed by [facility] Microbiology Laboratory ([phone]) us Aubrey Villatoro MD LAB MICROBIOLOGY - GENERA L ORDERABLES Final Result Performing Organization Address City/[facility] Co de Phone Number [address] [address] * TSH (02/14/2025 1:41 PM CDT) Thyroid Stimulating Hormone 0.95 0.30 - 4.20 mcIUnit/mL Blood Venous blood specimen / Unknown 02/14/2025 1:41 PM CDT 02/14/2025 6:20 PM CDT us Aubrey Villatoro MD LAB BLOOD ORDERABLES Jennifer l Result Performing Organization Address [facility] Co de Phone Number [address] [facility] [place] [address] * Vitamin B12 (02/14/2025 1:41 PM CDT) Vitamin B12 304 230 - 1,250 pg/mL Blood Venous blood specimen / Unknown 02/14/2025 1:41 PM CDT 02/14/2025 6:20 PM CDT us Aubrey Villatoro MD LAB BLOOD ORDERABLES Jennifer l Result Performing Organization Address [facility] Co de Phone Number [address] [facility] [place] [address] * (ABNORMAL) Lipid panel (02/14/2025 1:41 PM [...] revised on 2024. Non-HDL Cholesterol 134 mg/dL [facility] Comment: Interpretive Data Ages < or [...] last revised on 2018. Chol/HDL ratio 3 [facility] Blood Venous blood specimen / Unknown 02/14/2025 1:41 PM CDT 02/14/2025 6:20 PM CDT us Aubrey Villatoro MD LAB BLOOD ORDERABLES Jennifer l Result [facility] [address] [facility] Department [place] [address] * (ABNORMAL) Comprehensive metabolic panel (02/14/2025 1:41 PM CDT) Sodium 141 135 - 145 mmol/L Potassium, pl 4.0 3.3 - 4.9 mmol/L [facility] Chloride 103 97 - 110 mmol/L [facility] CO2 28 22 - 32 mmol/L [facility] Anion gap 10 2 - 15 mmol/L [facility] BUN 7 6 - 25 mg/dL [facility] Creatinine 1.10 0.60 - 1.10 mg/dL [facility] Glucose 68(L) 70 - 199 mg/dL [facility] Comment: Interpretive Data Fasting glucose >/= [...] 2022. Calcium 9.7 8.5 - 10.3 mg/dL [facility] Bilirubin, total 0.2 0.1 - 1.2 mg/dL [facility] Protein, pl 6.9 6.5 - 8.5 g/dL [facility] Albumin 4.1 3.5 - 5.0 g/dL [facility] Alk phos 108 40 - 130 Units/L [facility] ALT 18 7 - 45 Units/L [facility] AST 26 10 - 45 Units/L [facility] Blood Venous blood specimen / Unknown 02/14/2025 1:41 PM CDT 02/14/2025 6:20 PM CDT us Aubrey Villatoro MD LAB BLOOD ORDERABLES Jennifer l Result [facility] [address] [facility] [place] [address] * Screening Mammogram Bilateral W Carmen (11/02/2018 12:17 PM CDT) Anatomical Region Laterality Modality Breast Bilateral Mammography Narrative 11/03/2018 10:01 AM CDT Mammogram Technique: Bilateral Digital Breast Tomosynthesis, Bilateral C-view 2D Screening mammogram. Views obtained: bilateral craniocaudal and bilateral mediolateral oblique. Computer Aided Detection was performed. Mammogram Findings: The present examination has been compared to prior imaging studies performed at [facility] on 09/16/2016 and 10/13/2017. There are [...] to prior imaging studies performed at [facility] on 09/16/2016 and 10/13/2017. There are scattered areas of fibroglandular density. There is no suspicious abnormality in either breast. Findings compatible with prior left breast conservation therapy arenoted. Impression: Annual screening mammography is recommended. OVERALL FINAL ASSESSMENT: BI-RADS CATEGORY 1: Negative. 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
--- OUTSIDE RECORDS SUMMARY | 2025-05-15 14:18 | XMS_ITS | Patient Health Record ---
Author Organization [facility] Address [address] [address] Support Name Relationship Address Phone SARI STRINGER Emergency Contact Unknown LINNETTE MICHEL Guarantor Unknown Reason For Referral No Information Medications Medication [...] Aerosol Powder Breath Activated Inhalation *Reorder from [employer] for eRx and Interaction Alerts* 01/03/2019 Active traZODone HCl 50 MG Tablet Oral 01/03/2019 Active Immunizations Vaccine Route Administration Date Status Comme nts Influenza virus vaccine, quadrivalent (IIV4), split virus, 0.25 mL dosage Unknown 02/28/2018 Administered Pneumococcal conjugate PCV 7 Unknown 09/28/2012 Adminis tered Social History Social History Additional Details Category Social Info Options Details Migrated Social History Migrated Social History Alcohol Intake: Occasional 04/01/2020,Tobacco Years: Current every day smoker 04/01/2020,Smoking Status: 30 04/01/2020 Plan Of Treatment No Information Insurance Providers Payer Name Payer Address Payer Phone Subscriber Number Group Number Insured Name Patient Relationship to Insured Coverage Start Date Coverage End Date [place] [address] [place] [phone] [id number] RONDA SullivanLINNETTE Self - patient is the insured Aarp use other one [address] [place] [address] [id number] RONDA SullivanLINNETTE Self - patient is the insured [employer] Medicare Replacement/ Advantage - Hmo [address] [address] [place] [address] [id number] EDUARDOHELDER SullivanLINNETTE Self - patient is the insured Medical (General) History Surgical History Surgery Date(Month/Year) Removal of gallbladder (03591) Removal of ovary(s) (63111) Unlisted procedure breast () Hysterectomy/revise vagina (09474)
--- OUTSIDE RECORDS SUMMARY | 2025-05-15 14:18 | XMS_ITS | Clinical Summary ---
Author Organization [facility] Address [address] [place] [address] Care Team Providers Care Agricultural Commodities Grader Name Role Phone Jesus Hurtado MD Primary Care Provider Unavail able Source Comments [facility],non-owned Affiliates and Associated Physician Practices is amultiple site organization consisting of ambulatory clinics and hospital sitesin [place], [place], [place] and [place]. This disclosure is being madepursuant to the Care Everywhere program and may not contain all information available regarding this patient. 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
== END 2025-05-15 12:23 | disposition home or self-care (01) ==
PROVIDERS: PCP Family Medicine; Visit Provider Family Medicine
DX: Z12.2 Encounter for screening for malignant neoplasm of respiratory organs (principal); Z87.891 Personal history of nicotine dependence
CPT/HCPCS: 71271